=== PATIENT | female | born 1950 | race Caucasian/White ===

== ENCOUNTER → 2017-05-20 | Outpatient (CLI) | payer OTHER ==
[~2017-05-20] MED LIST: ACET325 PO; AMAN100; Advil200 M1 PO; BISA10S; BISA10S PR; CARB200 PO; CARB200ER PO; CEPH500 PO; Caffeine200 MG PO; Cipro500 MG PO; DIAZ2; DONE10 PO; FLUO20; IBUP400 PO; LEVSOD75; LOPE2C PO; Loperamide2 MG; Macrobid 100 M100 MG PO; Macrodantin50 MG PO; Milk Of Ma400 MG/5 M PO; NITR100 PO; Prozac20 MG PO; SIMV10 PO; TIZA4; TIZANIDINE HCL4 MG; TRIHYD253A; VITAMIN D32000 UNIT PO
[2017-05-21 09:23] LABS: Bilirubin, Urine Neg (Neg); Blood, Urine Neg (Neg); Glucose Qualitative, Urine Neg (Neg); Ketones, Urine Neg (Neg); Leukocyte Esterase, Urine Neg (Neg); Nitrite, Urine Pos (Neg); Protein, Urine Neg (Neg); Urobilinogen, Urine NORM (Normal)
[2017-05-21 09:45] LABS: Appearance, Urine Clear (Clear); Color, Urine Pale Yellow (P-Yellow)
[2017-05-21 09:48] LABS: Bacteria Few /hpf; Red Blood Cells, Urine Not Seen /hpf (0-2); Squamous Epithelial Cells Few /hpf (Few); White Blood Cells, Urine Not Seen /hpf (0-5)
== END ==
LOC: LAB SHORT 08:37
PROVIDERS: Internal Medicine
DX: N39.0 Urinary tract infection, site not specified (principal)
CPT/HCPCS: 81001; 87077; 87086; 87186

== ENCOUNTER → 2018-09-25 | Outpatient (CLI) | payer OTHER ==
[~2018-09-25] MED LIST changes: +DONEPEZIL HCL10 MG PO; +EUTHYROX75 MCG PO; +IBUP400; +Prozac40 MG PO; +TIZANIDINE HCL4 MG PO; +VITAMIN D34000 UNIT PO; +VIVARIN PO; +Zocor20 MG PO; +[UNRECOGNIZED DRUG - OTHER]
== END | disposition home or self-care (01) ==
LOC: LAB EV 12:42 → LAB SHORT 12:42
DX: N39.0 Urinary tract infection, site not specified (principal)
CPT/HCPCS: 87077; 87086; 87186

== ENCOUNTER 2019-01-13 12:46 | Emergency (ER) | payer OTHER ==
[~2019-01-13] VITALS: Ht 165.1 cm; Wt 66.7 kg
[~2019-01-13 12:46] MED LIST changes: -DONEPEZIL HCL10 MG PO; -EUTHYROX75 MCG PO; -IBUP400; -Prozac40 MG PO; -TIZANIDINE HCL4 MG PO; -VITAMIN D34000 UNIT PO; -VIVARIN PO; -Zocor20 MG PO; -[UNRECOGNIZED DRUG - OTHER]
[2019-01-13 13:10] LABS: Source, Urine Clean Catch
[2019-01-13 13:13] LABS: Bilirubin, Urine Neg (Neg); Blood, Urine Neg (Neg); Glucose Qualitative, Urine Neg (Neg); Ketones, Urine Neg (Neg); Leukocyte Esterase, Urine Neg (Neg); Nitrite, Urine Neg (Neg); Protein, Urine Neg (Neg); Specific Gravity, Urine 1.005 (1.003-1.022); Urobilinogen, Urine NORM (Normal)
[2019-01-13 13:14] LABS: Appearance, Urine Clear (Clear); Color, Urine Yellow (P-Yellow)
[2019-01-13] MEDS ORDERED: EUTHYROX75 MCG PO (13:24)
[2019-01-13] MEDS ORDERED: DONEPEZIL HCL10 MG PO (13:24)
[2019-01-13] MEDS ORDERED: Zocor20 MG PO (13:24)
[2019-01-13] MEDS ORDERED: Prozac40 MG PO (13:24)
[2019-01-13] MEDS ORDERED: IBUP400 (13:24)
[2019-01-13] MEDS ORDERED: TIZANIDINE HCL4 MG PO (13:25)
[2019-01-13] MEDS ORDERED: CARB200ER PO (13:25)
[2019-01-13] MEDS ORDERED: VITAMIN D34000 UNIT PO (13:26)
[2019-01-13] MEDS ORDERED: VIVARIN PO (13:26)
[2019-01-13] MEDS ORDERED: [UNRECOGNIZED DRUG - OTHER] (13:27)
[2019-01-13 15:01] LABS: Alanine Aminotransfer (ALT/SGP 24 U/L (12-78); Albumin, Blood 3.4 g/dL (3.4-5.0); Albumin/Globulin Ratio 0.9 (0.8-1.8); Alk Phos 130 U/L (50-136); Anion Gap 5 mmol/L (6-16); Aspartate Aminotrans (AST/SGOT 24 U/L (12-37); Bilirubin, Total 0.2 mg/dL (0.1-1.0); Blood Urea Nitrogen 9 mg/dL (8-24); Bun/Creatinine Ratio 11.3 (12.0-20.0); CO2, Blood 27 mmol/L (21-32); Calcium, Blood 8.8 mg/dL (8.5-10.1); Chloride, Blood 100 mmol/L (98-108); Globulin, Blood 3.8 g/dL (2.2-4.0); Glomerular Filtration Rate >60 (60-); Glucose, Blood 87 mg/dL (70-99); Potassium, Blood 4.6 mmol/L (3.5-5.5); Sodium, Blood 132 mmol/L (136-145); Total Protein, Blood 7.2 g/dL (6.4-8.2)
[2019-01-13 15:05] LABS: BASOPHILS ABSOLUTE AUTO 0.05 K/mm3 (0.00-0.23); BASOPHILS PERCENT AUTO 1 % (0-2); EOSINOPHILS PERCENT AUTO 0 % (0-6); Hematocrit 40.3 % (33.0-51.0); Hemoglobin 13.3 g/dL (11.5-16.0); IMMATURE GRAN ABSOLUTE AUTO 0.01 K/mm3 (0.00-0.10); IMMATURE GRAN PERCENT AUTO 0 % (0-1); LYMPHOCYTES ABSOLUTE AUTO 1.92 K/mm3 (0.84-5.20); LYMPHOCYTES PERCENT AUTO 32 % (21-46); MONOCYTES ABSOLUTE AUTO 0.48 K/mm3 (0.16-1.47); MONOCYTES PERCENT AUTO 8 % (4-13); Mean Corpuscular Volume 94 fL (80-100); Mean Platelet Volume 9.7 fL (9.1-12.4); NEUTROPHILS ABSOLUTE AUTO 3.63 K/mm3 (1.96-9.15); NEUTROPHILS PERCENT AUTO 60 % (41-73); Platelet Count 224 K/mm3 (150-400); RDW Coefficient Variation 12.9 % (11.7-14.2); RDW Standard Deviation 44.2 fL (35.1-46.3); Red Blood Cell Count 4.29 M/mm3 (3.80-5.20); White Blood Cell Count 6.09 K/mm3 (4.00-11.30)
== END 2019-01-13 15:28 | disposition home or self-care (01) ==
LOC: ER 12:46
PROVIDERS: Physician Assistant
DX: E87.1 Hypo-osmolality and hyponatremia (principal)
CPT/HCPCS: 36415; 80053; 81003; 85025; 93005; 93010; 99285-25

== ENCOUNTER → 2019-02-14 | Outpatient (CLI) | payer OTHER ==
[~2019-02-14] MED LIST changes: +AMLO5 PO; +ASPI81CH PO; +Anti-Diarrheal2 MG; +Anti-Diarrheal2 MG PO; +BUDESONIDE ER9 MG PO; +CHLORHEXIDINE; +CLOB.05TO; +DIPH12.5EL MT; +DONEPEZIL HCL10 MG PO; +DOXY100 PO; +EUTHYROX75 MCG PO; +Eq Liquid Anta769 ML PO; +Florastor250 MG PO; +Halobetasol Pro15 GM TOP; +IBUP400; +LEVSOD75 PO; +MILK OF MA400 MG/5 M PO; +MYCO250 PO; +Minocycline HC100 M1 PO; +NIACIN500 MG PO; +NITR100CA PO; +NYST100000 MT; +NYST100000 SS; +Norco 5-325 Ta1 EACH PO; +ONDA4ODT MM; +ONDA4ODT PO; +PANT40 PO; +PRED20 PO; +Prednisone20 MG PO; +Prozac40 MG PO; +SUCR1 PO; +Secura Protecti50 GM TOP; +THERA-D2000 UNIT PO; +TIZA4 PO; +TIZANIDINE HCL4 MG PO; +TRIANEX430 GM; +Tegretol Xr400 MG PO; +VITAMIN D34000 UNIT PO; +VIVARIN PO; +Xylocaine5 M1 MT; +Zocor20 MG PO; +[UNRECOGNIZED DRUG - OTHER]; +[UNRECOGNIZED DRUG - OTHER] TOP
== END ==
LOC: LAB SHORT 11:50 → LAB 11:50
DX: R21 Rash and other nonspecific skin eruption (principal)
CPT/HCPCS: 87070; 87205

== ENCOUNTER 2019-03-12 22:19 | Emergency (ER) | payer OTHER ==
[~2019-03-12] VITALS: Ht 162.6 cm; Wt 70.3 kg
[~2019-03-12 22:19] MED LIST changes: -AMLO5 PO; -ASPI81CH PO; -Anti-Diarrheal2 MG PO; -BUDESONIDE ER9 MG PO; -DIPH12.5EL MT; -DOXY100 PO; -Eq Liquid Anta769 ML PO; -Florastor250 MG PO; -Halobetasol Pro15 GM TOP; -LEVSOD75 PO; -MILK OF MA400 MG/5 M PO; -MYCO250 PO; -Minocycline HC100 M1 PO; -NIACIN500 MG PO; -NITR100CA PO; -NYST100000 MT; -NYST100000 SS; -Norco 5-325 Ta1 EACH PO; -ONDA4ODT PO; -PANT40 PO; -PRED20 PO; -Prednisone20 MG PO; -SUCR1 PO; -Secura Protecti50 GM TOP; -THERA-D2000 UNIT PO; -TIZA4 PO; -Tegretol Xr400 MG PO; -Xylocaine5 M1 MT; -[UNRECOGNIZED DRUG - OTHER] TOP
[2019-03-12] MEDS ORDERED: DOXY100 PO (23:23)
[2019-03-12] MEDS ORDERED: NITR100CA PO (23:26)
[2019-03-12] MEDS ORDERED: Halobetasol Pro15 GM TOP (23:29)
[2019-03-12] MEDS ORDERED: [UNRECOGNIZED DRUG - OTHER] TOP (23:30)
[2019-03-12] MEDS ORDERED: Anti-Diarrheal2 MG PO (23:34)
[2019-03-12 23:49] LABS: BASOPHILS ABSOLUTE AUTO 0.01 K/mm3 (0.00-0.23); BASOPHILS PERCENT AUTO 0 % (0-2); EOSINOPHILS PERCENT AUTO 0 % (0-6); Hematocrit 32.5 % (33.0-51.0); Hemoglobin 10.3 g/dL (11.5-16.0); IMMATURE GRAN ABSOLUTE AUTO 0.03 K/mm3 (0.00-0.10); IMMATURE GRAN PERCENT AUTO 0 % (0-1); LYMPHOCYTES ABSOLUTE AUTO 1.69 K/mm3 (0.84-5.20); LYMPHOCYTES PERCENT AUTO 25 % (21-46); MONOCYTES ABSOLUTE AUTO 0.62 K/mm3 (0.16-1.47); MONOCYTES PERCENT AUTO 9 % (4-13); Mean Corpuscular HGB 30.6 pg (26.0-34.0); Mean Corpuscular HGB Conc 31.7 g/dL (31.5-36.5); Mean Corpuscular Volume 96 fL (80-100); Mean Platelet Volume 9.4 fL (9.1-12.4); NEUTROPHILS ABSOLUTE AUTO 4.53 K/mm3 (1.96-9.15); NEUTROPHILS PERCENT AUTO 66 % (41-73); Platelet Count 263 K/mm3 (150-400); RDW Coefficient Variation 13.7 % (11.7-14.2); RDW Standard Deviation 48.9 fL (35.1-46.3); Red Blood Cell Count 3.37 M/mm3 (3.80-5.20); White Blood Cell Count 6.88 K/mm3 (4.00-11.30)
[2019-03-13 00:06] LABS: Alanine Aminotransfer (ALT/SGP 13 U/L (12-78); Albumin, Blood 2.1 g/dL (3.4-5.0); Albumin/Globulin Ratio 0.8 (0.8-1.8); Alk Phos 82 U/L (50-136); Anion Gap 5 mmol/L (6-16); Aspartate Aminotrans (AST/SGOT 13 U/L (12-37); Bilirubin, Total 0.2 mg/dL (0.1-1.0); Blood Urea Nitrogen 21 mg/dL (8-24); Bun/Creatinine Ratio 27.8 (12.0-20.0); CO2, Blood 27 mmol/L (21-32); Calcium, Blood 7.7 mg/dL (8.5-10.1); Chloride, Blood 109 mmol/L (98-108); Creatinine, Blood 0.76 mg/dL (0.40-1.00); Globulin, Blood 2.7 g/dL (2.2-4.0); Glomerular Filtration Rate >60 (60-); Glucose, Blood 98 mg/dL (70-99); Magnesium, Blood 1.8 mg/dL (1.6-2.4); Potassium, Blood 4.6 mmol/L (3.5-5.5); Sodium, Blood 141 mmol/L (136-145); Total Protein, Blood 4.8 g/dL (6.4-8.2)
[2019-03-13] MEDS ORDERED: Prednisone20 MG PO (00:40)
[2019-03-13] MEDS ORDERED: [UNRECOGNIZED DRUG - OTHER] TOP (19:23)
[2019-03-13] MEDS ORDERED: NITR100CA PO (23:24)
== END 2019-03-13 01:35 | disposition home or self-care (01) ==
LOC: ER 22:19
PROVIDERS: Emergency Medicine
DX: L12.0 Bullous pemphigoid (principal); E03.9 Hypothyroidism, unspecified; E78.5 Hyperlipidemia, unspecified; G30.9 Alzheimer's disease, unspecified; F02.80 Dementia in other diseases classified elsewhere, unspecified severity, without behavioral disturbance, psychotic disturbance, mood disturbance, and anxiety; F17.210 Nicotine dependence, cigarettes, uncomplicated; Z79.899 Other long term (current) drug therapy
CPT/HCPCS: 36415; 80053; 83605; 83735; 84145; 85025; 87040; 99283; J7512

== ENCOUNTER 2019-03-13 15:57 | Observation (INO) | payer OTHER ==
[~2019-03-13] VITALS: Ht 162.6 cm; Wt 74.7 kg
[~2019-03-13 15:57] MED LIST changes: +Anti-Diarrheal2 MG PO; +DOXY100 PO; +Halobetasol Pro15 GM TOP; +NITR100CA PO; +Prednisone20 MG PO; +[UNRECOGNIZED DRUG - OTHER] TOP
[2019-03-13 16:45] LABS: BASOPHILS ABSOLUTE AUTO 0.03 K/mm3 (0.00-0.23); BASOPHILS PERCENT AUTO 0 % (0-2); EOSINOPHILS PERCENT AUTO 0 % (0-6); Hemoglobin 10.3 g/dL (11.5-16.0); IMMATURE GRAN ABSOLUTE AUTO 0.03 K/mm3 (0.00-0.10); IMMATURE GRAN PERCENT AUTO 0 % (0-1); LYMPHOCYTES ABSOLUTE AUTO 1.61 K/mm3 (0.84-5.20); LYMPHOCYTES PERCENT AUTO 18 % (21-46); MONOCYTES ABSOLUTE AUTO 0.69 K/mm3 (0.16-1.47); MONOCYTES PERCENT AUTO 8 % (4-13); Mean Corpuscular HGB 30.7 pg (26.0-34.0); Mean Corpuscular HGB Conc 31.2 g/dL (31.5-36.5); Mean Corpuscular Volume 98 fL (80-100); Mean Platelet Volume 9.4 fL (9.1-12.4); NEUTROPHILS ABSOLUTE AUTO 6.41 K/mm3 (1.96-9.15); NEUTROPHILS PERCENT AUTO 73 % (41-73); Platelet Count 234 K/mm3 (150-400); RDW Coefficient Variation 13.8 % (11.7-14.2); RDW Standard Deviation 50.3 fL (35.1-46.3); Red Blood Cell Count 3.36 M/mm3 (3.80-5.20); White Blood Cell Count 8.77 K/mm3 (4.00-11.30)
[2019-03-13 17:08] LABS: Alanine Aminotransfer (ALT/SGP 12 U/L (12-78); Albumin, Blood 2.2 g/dL (3.4-5.0); Albumin/Globulin Ratio 0.7 (0.8-1.8); Alk Phos 88 U/L (50-136); Anion Gap 5 mmol/L (6-16); Aspartate Aminotrans (AST/SGOT 13 U/L (12-37); Bilirubin, Total 0.2 mg/dL (0.1-1.0); Blood Urea Nitrogen 24 mg/dL (8-24); Bun/Creatinine Ratio 26.5 (12.0-20.0); CO2, Blood 24 mmol/L (21-32); Calcium, Blood 7.8 mg/dL (8.5-10.1); Chloride, Blood 108 mmol/L (98-108); Creatinine, Blood 0.91 mg/dL (0.40-1.00); Globulin, Blood 3.1 g/dL (2.2-4.0); Glomerular Filtration Rate >60 (60-); Glucose, Blood 109 mg/dL (70-99); Potassium, Blood 4.5 mmol/L (3.5-5.5); Sodium, Blood 137 mmol/L (136-145); Total Protein, Blood 5.3 g/dL (6.4-8.2)
[2019-03-13 18:02] LABS: Carbamazepine 11.1 ug/mL (4.0-12.0)
[2019-03-13] MEDS ORDERED: [UNRECOGNIZED DRUG - OTHER] TOP (19:23)
--- NOTE | 2019-03-13 21:37 | NUR ---
REPORT RECIEVED FROM PRASHANTH (BAD CLOTH CHECKER) AT 2114 AND AWAITING PT T/F TO ROOM 349. TECH WAS ATTEMPTING NEW IV PLACEMENT FOR RX'D CTA PER REPORT.
[2019-03-13] MEDS ORDERED: NITR100CA PO (23:24)
--- NOTE | 2019-03-14 05:43 | NUR ---
T/F AND SUMMARY: PT T/F'D TO ROOM 349 AT 2155. SHE'S A/OX3 AND APPEARS TO BE AN OK HISTORIAN BUT HAS DEMENTIA W/SOME FORGETFULLNESS AT TIMES. PT AWARE OF LIMITATIONS AND USED CALL LIGHT CORRECTLY PRN BUT ALARM ON FOR SAFETY AND FALL RISK. SHE IS ABLE TO SPECIFY NEEDS AND ANSWERS MOST Q'S APPROPRIATELY BUT SOMETIMES USES WORDS INCORRECTLY. FAMILY CONFIRMED THAT HER OCCASIONAL STUTTER AND FINE TREMOR ARE PRESENT AT BASELINE R/T MS. SHE ARRIVED W/O ANY OBSERVED TIA DEFICITS AND NEUROS CHECKS REMAINED STABLE T/O NOCTE. BUE, OUTREACH EDUCATOR AND BLE STRENGTH EQUAL. LEGS ARE WEAK AND SLIGHTLY CONTRACTED FROM MS. SHE'S W/C BOUND AND NONAMBULATORY AT BASELINE BUT CAN 2P PIVOT TO BSC. BSC AND BEDPAN WERE USED FOR VOIDS THIS SHIFT. SHE WAS ALSO NOTED TO HAVE SOME URGE INCONTINENCE W/ATTENDS CHANGED PRN. TURN SCHEDULE MAINTAINED FOR SBD PREVENTION. PT HAS NEW DX OF BULLOUS PEMPHIGOID APPROX 4 WEEKS AGO W/DIFFUSE RED RASH AND BLISTERS, BOTH INTACT AND BROKEN, COVERING HER ENTIRE BODY. PHOTOS WERE TAKEN AND ROSELYNRIN RECIEVED PRN FOR TOLERABLE CONTROL OF ASSOCIATED PAIN. LOVENOX PROVIDED BUT SCD'S HELD D/T BLISTERS. PT'S SON-IN-LAW CALLED FOR UPDATE. HE AND HIS ARE IN [place] AND HAVE POA. PT LIVES AT [facility]. NO ACUTE CHANGES, VSS/AFEBRILE. WCTM AND REPORT TO DAY LUIS.
--- NOTE | 2019-03-14 17:34 | NUR ---
PT IS A/OX3, PLEASANT AND COOPERATIVE, THE PT IS UP WITH 2 PERSON ASSIST, THE PT WAS ABLE TO ANSWER QUESTIONS APPROPRIATLY, CREAM WAS APPLIED TO THE PTS WOUNDS COVERING HER WHOLE BODY, THE PT WAS MEDICATED WITH ADVIL X 1 FOR PAIN AFTER THE LOTION WAS APPLIED, THE PT WORKED WITH THE PHYSICAL AND OPCCUPATIONAL THERAPIST TODAY, THE PT WAS UP INTO THE CHAIR X2, FAMILY AT THE BEDSIDE T/O THE DAY, CALL LIGHT IN REACH, WILL CONTINUE TO MONITOR AND ASSESS FOR CHANGES
--- NOTE | 2019-03-15 05:13 | NUR ---
SUMMARY: PT A/OX3, COOPERATIVE W/CARE AND SPECIFIES NEEDS. SHE WASN'T OOB THIS SHIFT AND ATTEMPTED TO USE BEDPAN BUT HAD URGE INCONTINENT MOSTLY W/ATTENDS CHANGED PRN. CREAMS APPLIED TO WOUNDS/BLISTERS THAT COVER ENTIRE BODY. SHE WAS MEDICATED W/MOTRIN PRN X2 DOSES FOR TOLERABLE CONTROL OF WALLACE AND BODY PAIN. TURN SCHEDULE WAS MAINTAINED AND HEELS FLOATED FOR SBD PREVENTION. PT ANSWERS Q'S APPROPROPRIATELY AND OCCASIONALLY HAS STUTTERED SPEECH D/T MS. NO NEURO DEFICITS OBSERVED. VSS/AFEBRILE. POSSIBLE D/C TODAY/TOMORROW. PT LIVES AT [facility] [employer]. NO ACUTE CHANGES. WCTM AND REPORT TO DAY RN.
--- NOTE | 2019-03-15 15:15 | NUR ---
SHIFT SUMMARY PT AWAKE THIS AM, PLEASANT AND CO-OP. ADMITTED FOR POSSIBLE TIA; RESOLVED PRIOR TO ADMIT PER REPORT. PT WITH BODY WIDE BLISTERS AT DIFFERENT STAGES; BULLOUS PEMPHIGOID. STEROID CREAM APPLIED PER EMAR. PT ALSO TAKING PREDNISONE PER EMAR. PT REPORTS PAIN FROM BLISTERS TOLERABLE. MORTRIN GIVEN PER EMAR. PT EDEMATOUS, ESPECIALLY TO BLE'S. HX OF ALZ AND DEMENTIA. LIVES AT [facility] [facility] CASTLE IN TO SEE PT THIS AM. D/C ORDERS PLACED. NO CHANGES TO MEDICATIONS. PT TO F/U WITH PCP IN 1 WEEK. PT ACKNOWLEDGED D/C ORDERS. COPY SENT TO [facility] WITH TRANSPORT PERSON. ATTEMPTED TO GIVE REPORT TO [facility] NURSING, BUT THEY DECLINED NEEDING REPORT. SPOKE WITH SEAT 4a; NO CHANGES TO MEDS MADE. PT UP TO CHAIR FOR BREAKFAST UNTIL REQUESTING TO GO BACK TO BED. LATER CALLED FOR BED MIXON, BUT HAD ALREADY VOIDED IN ATTENDS. 2P ASSIST TO CHAIR WITH GAIT BELT. PT VERY WEAK; DOES ATTEMPT TO HELP, BUT WEAK. PT'S SISTER IN TO VISIT IN AM AND UPDATE GIVEN AFTER D/C. DAUGHTER CALLED THIS AM WELL. UPDATE GIVEN.
== END 2019-03-15 13:32 | disposition home or self-care (01) ==
LOC: ER 15:57 → MEDS 15:58 → ER 19:46 → MEDS 21:56 → ENPENDDIS 03-15 12:51 → MEDS 03-15 13:32
PROVIDERS: Emergency Medicine; ADMIT Hospitalist
DX: G45.9 Transient cerebral ischemic attack, unspecified (principal); G40.909 Epilepsy, unspecified, not intractable, without status epilepticus; G35 Multiple sclerosis; G30.9 Alzheimer's disease, unspecified; F02.80 Dementia in other diseases classified elsewhere, unspecified severity, without behavioral disturbance, psychotic disturbance, mood disturbance, and anxiety; L10.89 Other pemphigus; E03.9 Hypothyroidism, unspecified; F17.210 Nicotine dependence, cigarettes, uncomplicated; E86.0 Dehydration; D64.9 Anemia, unspecified; Z79.82 Long term (current) use of aspirin; Z79.899 Other long term (current) drug therapy
CPT/HCPCS: 70450; 70496; 70498; 80053; 80156; 85025; 93005; 93010; 93306; 96372; 97162; 97166; 97530; 99285-25; A9270-GY; G0378; J1650; J7030; J7512; Q9967

== ENCOUNTER 2019-03-19 10:58 | Emergency (ER) | payer OTHER ==
[~2019-03-19] VITALS: Ht 167.6 cm; Wt 95.2 kg
[2019-03-19 12:35] LABS: BASOPHILS ABSOLUTE AUTO 0.06 K/mm3 (0.00-0.23); BASOPHILS PERCENT AUTO 0 % (0-2); EOSINOPHILS PERCENT AUTO 0 % (0-6); Hematocrit 38.2 % (33.0-51.0); Hemoglobin 12.1 g/dL (11.5-16.0); IMMATURE GRAN ABSOLUTE AUTO 0.07 K/mm3 (0.00-0.10); IMMATURE GRAN PERCENT AUTO 1 % (0-1); LYMPHOCYTES ABSOLUTE AUTO 0.63 K/mm3 (0.84-5.20); LYMPHOCYTES PERCENT AUTO 4 % (21-46); MONOCYTES ABSOLUTE AUTO 1.01 K/mm3 (0.16-1.47); MONOCYTES PERCENT AUTO 7 % (4-13); Mean Corpuscular HGB 30.6 pg (26.0-34.0); Mean Corpuscular HGB Conc 31.7 g/dL (31.5-36.5); Mean Corpuscular Volume 97 fL (80-100); Mean Platelet Volume 9.1 fL (9.1-12.4); NEUTROPHILS ABSOLUTE AUTO 12.95 K/mm3 (1.96-9.15); NEUTROPHILS PERCENT AUTO 88 % (41-73); Platelet Count 413 K/mm3 (150-400); RDW Coefficient Variation 14.3 % (11.7-14.2); RDW Standard Deviation 50.8 fL (35.1-46.3); Red Blood Cell Count 3.95 M/mm3 (3.80-5.20); White Blood Cell Count 14.72 K/mm3 (4.00-11.30)
[2019-03-19 12:52] LABS: Alanine Aminotransfer (ALT/SGP 20 U/L (12-78); Albumin, Blood 2.7 g/dL (3.4-5.0); Albumin/Globulin Ratio 0.7 (0.8-1.8); Alk Phos 95 U/L (50-136); Anion Gap 6 mmol/L (6-16); Aspartate Aminotrans (AST/SGOT 18 U/L (12-37); Bilirubin, Total 0.2 mg/dL (0.1-1.0); Blood Urea Nitrogen 16 mg/dL (8-24); Bun/Creatinine Ratio 21.4 (12.0-20.0); CO2, Blood 26 mmol/L (21-32); Calcium, Blood 8.2 mg/dL (8.5-10.1); Chloride, Blood 108 mmol/L (98-108); Creatinine, Blood 0.75 mg/dL (0.40-1.00); Globulin, Blood 3.8 g/dL (2.2-4.0); Glomerular Filtration Rate >60 (60-); Glucose, Blood 147 mg/dL (70-99); Potassium, Blood 4.3 mmol/L (3.5-5.5); Sodium, Blood 140 mmol/L (136-145); Total Protein, Blood 6.5 g/dL (6.4-8.2)
== END 2019-03-19 16:23 | disposition home or self-care (01) ==
LOC: ER 10:58
PROVIDERS: Emergency Medicine
DX: J02.9 Acute pharyngitis, unspecified (principal); E86.0 Dehydration; L12.9 Pemphigoid, unspecified; I10 Essential (primary) hypertension; G30.9 Alzheimer's disease, unspecified; F02.80 Dementia in other diseases classified elsewhere, unspecified severity, without behavioral disturbance, psychotic disturbance, mood disturbance, and anxiety; F17.210 Nicotine dependence, cigarettes, uncomplicated; G35 Multiple sclerosis
CPT/HCPCS: 36415; 80053; 85025; 96361; 96374; 99283-25; J2930; J7030

== ENCOUNTER 2019-03-24 13:36 | Emergency (ER) | payer OTHER ==
[~2019-03-24] VITALS: Ht 162.6 cm; Wt 86.2 kg
[2019-03-24] MEDS ORDERED: NYST100000 SS (16:25)
== END 2019-03-24 18:41 | disposition home or self-care (01) ==
LOC: ER 13:36
DX: B37.0 Candidal stomatitis (principal); G35 Multiple sclerosis; L10.9 Pemphigus, unspecified; G30.9 Alzheimer's disease, unspecified; F02.80 Dementia in other diseases classified elsewhere, unspecified severity, without behavioral disturbance, psychotic disturbance, mood disturbance, and anxiety; E03.9 Hypothyroidism, unspecified; E78.5 Hyperlipidemia, unspecified; F17.210 Nicotine dependence, cigarettes, uncomplicated; Z79.52 Long term (current) use of systemic steroids; Z79.899 Other long term (current) drug therapy
CPT/HCPCS: 96365; 96366; 99283-25; J2930

== ENCOUNTER 2019-03-25 11:12 | Observation (INO) | payer OTHER ==
[~2019-03-25] VITALS: Ht 167.6 cm; Wt 66.9 kg
[~2019-03-25 11:12] MED LIST changes: +NYST100000 SS
[2019-03-25 14:11] LABS: BASOPHILS ABSOLUTE AUTO 0.05 K/mm3 (0.00-0.23); BASOPHILS PERCENT AUTO 0 % (0-2); EOSINOPHILS PERCENT AUTO 0 % (0-6); Hematocrit 37.3 % (33.0-51.0); Hemoglobin 11.6 g/dL (11.5-16.0); IMMATURE GRAN PERCENT AUTO 1 % (0-1); LYMPHOCYTES ABSOLUTE AUTO 2.31 K/mm3 (0.84-5.20); LYMPHOCYTES PERCENT AUTO 18 % (21-46); MONOCYTES ABSOLUTE AUTO 1.29 K/mm3 (0.16-1.47); MONOCYTES PERCENT AUTO 10 % (4-13); Mean Corpuscular HGB Conc 31.1 g/dL (31.5-36.5); Mean Corpuscular Volume 96 fL (80-100); Mean Platelet Volume 9.2 fL (9.1-12.4); NEUTROPHILS ABSOLUTE AUTO 9.46 K/mm3 (1.96-9.15); NEUTROPHILS PERCENT AUTO 72 % (41-73); Platelet Count 390 K/mm3 (150-400); RDW Coefficient Variation 13.7 % (11.7-14.2); RDW Standard Deviation 48.7 fL (35.1-46.3); Red Blood Cell Count 3.87 M/mm3 (3.80-5.20); White Blood Cell Count 13.21 K/mm3 (4.00-11.30)
[2019-03-25 14:32] LABS: Alanine Aminotransfer (ALT/SGP 62 U/L (12-78); Albumin, Blood 2.5 g/dL (3.4-5.0); Albumin/Globulin Ratio 0.6 (0.8-1.8); Alk Phos 71 U/L (50-136); Anion Gap 5 mmol/L (6-16); Aspartate Aminotrans (AST/SGOT 44 U/L (12-37); Bilirubin, Total 0.2 mg/dL (0.1-1.0); Blood Urea Nitrogen 17 mg/dL (8-24); Bun/Creatinine Ratio 24.8 (12.0-20.0); CO2, Blood 29 mmol/L (21-32); Calcium, Blood 8.4 mg/dL (8.5-10.1); Chloride, Blood 111 mmol/L (98-108); Creatinine, Blood 0.69 mg/dL (0.40-1.00); Globulin, Blood 4.1 g/dL (2.2-4.0); Glomerular Filtration Rate >60 (60-); Glucose, Blood 89 mg/dL (70-99); Potassium, Blood 3.8 mmol/L (3.5-5.5); Sodium, Blood 145 mmol/L (136-145); Total Protein, Blood 6.6 g/dL (6.4-8.2)
[2019-03-25 14:45] LABS: Calcium, Ionized (POC) 1.06 mmol/L (1.10-1.46); Chloride (POC) 107 mmol/L (98-108); Creatinine (POC) 0.7 mg/dL (0.6-1.0); Glucose (ISTAT POC) 91 mg/dL (70-99); Hemoglobin (POC) 11.2 g/dL (12.0-16.0); Potassium (POC) 3.8 mmol/L (3.5-5.5); Sodium (POC) 141 mmol/L (135-148); Total CO2 (POC) 30 mmol/L (21-32)
--- NOTE | 2019-03-25 17:01 | NUR ---
1458 PT ADMITTED TO [facility] FLOOR VIA GURNEY, SLIDE TRANSFERED TO BED WITHOUT ISSUE. PT INCONTINENT OF URINE, INCONTINENCE CARE PERFORMED, HOSPITAL GOWN PUT ON. PT WITH MULTIPLE BLISTERS BOTH CLOSED AND OPEN SCATTERED THROUGHOUT ENTIRE SKIN, PICTURES TAKEN. PT WITH FULL CODE ORDERS, SPOKE WITH MARIAELENA RONDON WHO CONFIRMED MOST RECENT POLST THAT IS ON FILE SHOWS DNR, DR. TORRES NOTIFIED AND RECIEVED ORDERS FOR DNR, COPY OF POLST ON FRONT OF CHART. UNABLE TO FIND DERMOTALOGY CONSULT FOR WEEKEND, DR. TORRES NOTIFIED.
--- NOTE | 2019-03-25 18:36 | NUR ---
SON AT BEDSIDED, PLAN OF CARE EXPLAINED, PT AND SON AGREE WITH PLAN OF CARE.
--- NOTE | 2019-03-26 04:12 | NUR ---
SHIFT SUMMARY PATIENT UNABLE TO GET A GOOD NIGHT SLEEP DUE TO BEING COLD AND HAVING FREQUENT URINATION. FURNACE PROCESS SUPERVISOR AND I BOTH OBTAINED WARM BLANKETS NEEDED. IV IN LEFT WRIST PATENT AND INFUSING, DRESSING CHANGED ON IV. BED IN LOWEST POSITION WITH WHEELS LOCKED AND ALARM ON. CALL LIGHT WITHIN REACH. REPORT GIVEN TO ONCOMING RN.
[2019-03-26 05:43] LABS: Alanine Aminotransfer (ALT/SGP 42 U/L (12-78); Albumin, Blood 2.2 g/dL (3.4-5.0); Albumin/Globulin Ratio 0.6 (0.8-1.8); Alk Phos 60 U/L (50-136); Anion Gap 6 mmol/L (6-16); Aspartate Aminotrans (AST/SGOT 17 U/L (12-37); Bilirubin, Total 0.2 mg/dL (0.1-1.0); Blood Urea Nitrogen 17 mg/dL (8-24); Bun/Creatinine Ratio 30.5 (12.0-20.0); CO2, Blood 28 mmol/L (21-32); Calcium, Blood 7.9 mg/dL (8.5-10.1); Chloride, Blood 108 mmol/L (98-108); Creatinine, Blood 0.56 mg/dL (0.40-1.00); Globulin, Blood 3.5 g/dL (2.2-4.0); Glomerular Filtration Rate >60 (60-); Glucose, Blood 115 mg/dL (70-99); Potassium, Blood 3.7 mmol/L (3.5-5.5); Sodium, Blood 142 mmol/L (136-145); Total Protein, Blood 5.7 g/dL (6.4-8.2)
[2019-03-26 06:07] LABS: Hematocrit 38.6 % (33.0-51.0); Hemoglobin 11.9 g/dL (11.5-16.0); Mean Corpuscular HGB 30.7 pg (26.0-34.0); Mean Corpuscular HGB Conc 30.8 g/dL (31.5-36.5); Mean Corpuscular Volume 100 fL (80-100); Mean Platelet Volume 9.6 fL (9.1-12.4); Platelet Count 318 K/mm3 (150-400); RDW Coefficient Variation 13.7 % (11.7-14.2); RDW Standard Deviation 49.6 fL (35.1-46.3); Red Blood Cell Count 3.87 M/mm3 (3.80-5.20)
--- NOTE | 2019-03-26 10:03 | NUR ---
PT TO DAY SURGERY FOR EGD, NPO SINCE ADMISSION.
--- NOTE | 2019-03-26 10:41 | NUR ---
03/26/19 1041 Sangeetha Varela History, Chart, Medications and Allergies reviewed before start of procedure.PATIENT DETERMINED TO BE ASA APPROPRIATE FOR PROPOFOL SEDATION PRIOR TO START OF PROCEDURE BY .MONITOR INTACT WITH CONTINUOUS PULSE OXIMETRY AND INTERMITTENT BP.3-LEAD EKG REVIEWED WITH PHYSICIAN PRIOR TO START OF PROCEDURE.O2 VIA N/C INTACT THROUGHOUT SEDATION/PROCEDURE.
--- NOTE | 2019-03-26 13:22 | NUR ---
PT NAUSEUS, IV ZOFRAN GIVEN, AWAITING TO GIVE CARAFATE AND SLURRY FORMULATION
--- NOTE | 2019-03-26 14:44 | NUR ---
SPOKE WITH DR. CLARK VIA PHONE, RECIEVED DIET ORDER FOR DINNER MECH SOFT. PT REFUSED STRAIGHT CATH FOR U/A, DR. TORRES NOTIFIED, RECIEVED ORDER TO D/C U/A.
--- NOTE | 2019-03-26 18:42 | NUR ---
SHIFT SUMMARY. EGD COMPLETED THIS LATE AM. PT TOLERATED MECH SOFT DIET FOR DINNER WITHOUT COMPLAINT. FAMILY UPDATED THIS EVENING.
--- NOTE | 2019-03-27 05:44 | NUR ---
SHIFT SUMMARY LYING IN SEMI FOWLERS WITH EYES CLOSED. HAS WOKEN UP AND CALLED OUT SEVERAL TIMES THROUGHOUT SHIFT. AT ONE TIME SHE ASKED FOR N/V MEDS AND "SOMETHING FOR PAIN". WHEN BROUGHT TO BEDSIDE SHE ACCEPTED THE ZOFRAN FOR N/V BUT REFUSED THE RECTAL TYLENO, STATING THAT SHE HAD BEEN SUFFEREING ALL HER LIFE WITH MS AND WAS USED TO PAIN. HAS BEEN CONFUSED OFF AND ON THROUGHOUT THE SHIFT, APPREARS TO EASILY REORIENT, BUT NURSING IS UNSURE. SAFETY MEAURES IN PLACE. WILL GIVE HAND OFF TO ONCOMING SHIFT USING SBAR.
--- NOTE | 2019-03-27 18:10 | NUR ---
SUMMARY PT IS A/O X1-2, FORGETFUL w HX ALZ/DEM, RESIDENT OF [facility]. DX BOLLUS PEMPHAGOID, SHE HAS SCABS & BLISTERS T/O BODY IN VARIOUS STAGES OF HEALING. COMPLETE BEDBATH GIVEN THIS AM, 2 DIFFERENT OINTS FROM HOME ORDERED/APPLIED. COMPLETE LINEN CHANGE. DR BURT (DERMATOLOGY CONSULT) IN TO SEE HER @ NOON, HE SPOKE W DR TORRES AFTER VISIT. DR TORRES ADJUST MEDICATION ORDERS THIS AFTERNOON, STOP CLINIMIX. MULT FAMILY IN TO VISIT TODAY/SUPPORTIVE. VSS.
[2019-03-28 04:49] LABS: BASOPHILS ABSOLUTE AUTO 0.02 K/mm3 (0.00-0.23); BASOPHILS PERCENT AUTO 0 % (0-2); EOSINOPHILS PERCENT AUTO 0 % (0-6); Hematocrit 36.1 % (33.0-51.0); Hemoglobin 11.4 g/dL (11.5-16.0); IMMATURE GRAN ABSOLUTE AUTO 0.08 K/mm3 (0.00-0.10); IMMATURE GRAN PERCENT AUTO 1 % (0-1); LYMPHOCYTES ABSOLUTE AUTO 2.14 K/mm3 (0.84-5.20); LYMPHOCYTES PERCENT AUTO 23 % (21-46); MONOCYTES ABSOLUTE AUTO 0.63 K/mm3 (0.16-1.47); MONOCYTES PERCENT AUTO 7 % (4-13); Mean Corpuscular HGB 30.1 pg (26.0-34.0); Mean Corpuscular HGB Conc 31.6 g/dL (31.5-36.5); Mean Platelet Volume 9.4 fL (9.1-12.4); NEUTROPHILS ABSOLUTE AUTO 6.34 K/mm3 (1.96-9.15); NEUTROPHILS PERCENT AUTO 69 % (41-73); Platelet Count 312 K/mm3 (150-400); RDW Coefficient Variation 13.7 % (11.7-14.2); RDW Standard Deviation 47.6 fL (35.1-46.3); Red Blood Cell Count 3.79 M/mm3 (3.80-5.20); White Blood Cell Count 9.21 K/mm3 (4.00-11.30)
--- NOTE | 2019-03-28 04:49 | NUR ---
SHIFT SUMMARY ADMITTED FOR BULLOUS PEMPHIGOID. DNR CODE. DR GRACE CONSULTED FOR DERMATOLOGY.. BLISTERS COVER EXTREMETIES. EGD PERFORMED. [facility] SOFT DIET W/NO HOT LIQUIDS RECOMMENDED. PT ABLE TO SWALLOW HER PILLS AND EAT ALL OF HER DINNER TODAY. RA. 2 ASSIST TO BSC, HX:MS, ALZHEIMERS/DEMENTIA. LIVES AT [facility]. MONITORING WBC LABS.
[2019-03-28 04:53] LABS: Mean Corpuscular Volume 95 fL (80-100)
[2019-03-28 05:10] LABS: Albumin, Blood 2.1 g/dL (3.4-5.0); Anion Gap 5 mmol/L (6-16); Blood Urea Nitrogen 16 mg/dL (8-24); CO2, Blood 28 mmol/L (21-32); Calcium, Blood 7.7 mg/dL (8.5-10.1); Chloride, Blood 109 mmol/L (98-108); Creatinine, Blood 0.64 mg/dL (0.40-1.00); Glomerular Filtration Rate >60 (60-); Glucose, Blood 82 mg/dL (70-99); Phosphorus, Blood 2.5 mg/dL (2.5-4.9); Sodium, Blood 142 mmol/L (136-145)
[2019-03-28] MEDS ORDERED: BUDESONIDE ER9 MG PO (12:06)
--- NOTE | 2019-03-28 12:46 | NUR ---
discharge DR TORRES IN TO SEE PT, STATE OK FOR TRANSFER HOME TODAY TO [facility]. PT DAUGHTER/POA NOTIFIED. [facility] NOTIFIED, ORDERS FAXED TO THEM. PT HAD PT/OT TODAY. SHE WAS UP IN CHAIR, 1 ASSIST STAND/PIVOT TRANSFER W GB. SHE IS A/O X1-2, FORGETFUL. LIGHT BEDBATH PROVIDED, IV D/C INTACT. RN D/C TRUCK CRANE OPERATOR [facility], [facility]1983 ARRANGING TRANSPORTATION.
--- NOTE | 2019-03-28 13:40 | NUR ---
report called to juan antonio plata rn. discharge planning [facility] w/c van transport @ approx 1400.
== END 2019-03-28 14:15 | disposition home or self-care (01) ==
LOC: ER 11:12 → MEDS 11:13 → ENPENDDIS 03-28 11:24 → MEDS 03-28 14:15
PROVIDERS: Emergency Medicine; Internal Medicine Gastroenterology; ADMIT Internal Medicine
PROC: 0DB68ZX Excision of Stomach, Via Natural or Artificial Opening Endoscopic, Diagnostic (ICD-10-PCS; principal; 2019-03-26 10:30)
PROC: 0DB18ZX Excision of Upper Esophagus, Via Natural or Artificial Opening Endoscopic, Diagnostic (ICD-10-PCS; principal; 2019-03-26 10:30)
DX: L12.1 Cicatricial pemphigoid (principal); L12.0 Bullous pemphigoid; K20.8 Other esophagitis; K31.89 Other diseases of stomach and duodenum; K26.9 Duodenal ulcer, unspecified as acute or chronic, without hemorrhage or perforation; J39.2 Other diseases of pharynx; G30.9 Alzheimer's disease, unspecified; F02.80 Dementia in other diseases classified elsewhere, unspecified severity, without behavioral disturbance, psychotic disturbance, mood disturbance, and anxiety; G35 Multiple sclerosis; G40.909 Epilepsy, unspecified, not intractable, without status epilepticus; F32.9 Major depressive disorder, single episode, unspecified; F41.9 Anxiety disorder, unspecified; E03.9 Hypothyroidism, unspecified; F17.210 Nicotine dependence, cigarettes, uncomplicated; I73.9 Peripheral vascular disease, unspecified; E66.9 Obesity, unspecified; Z68.32 Body mass index [BMI] 32.0-32.9, adult; Z90.49 Acquired absence of other specified parts of digestive tract; Z79.52 Long term (current) use of systemic steroids; Z79.899 Other long term (current) drug therapy; Z99.3 Dependence on wheelchair; Z86.73 Personal history of transient ischemic attack (TIA), and cerebral infarction without residual deficits
CPT/HCPCS: 36415; 70360; 80047; 80053; 80069; 85014; 85025; 85027; 88305; 88312; 88342; 96361; 96375; 96376; 97110; 97162; 97165; 97530; 99284-25; C1751; C9113; G0378; J0360; J1650; J2405; J2704; J2920; J7120; J7512; J7517

== ENCOUNTER 2019-04-03 17:47 | Inpatient (IN) | payer OTHER ==
[~2019-04-03] VITALS: Ht 162.6 cm; Wt 66.7 kg
[~2019-04-03 17:47] MED LIST changes: +BUDESONIDE ER9 MG PO
[2019-04-03] MEDS ORDERED: DONEPEZIL HCL10 MG PO (19:41)
[2019-04-03] MEDS ORDERED: LEVSOD75 PO (19:42)
[2019-04-03] MEDS ORDERED: Prozac40 MG PO (19:42)
[2019-04-03] MEDS ORDERED: SIMV10 PO (19:43)
[2019-04-03] MEDS ORDERED: ACET325 PO (19:43)
[2019-04-03] MEDS ORDERED: NIACIN500 MG PO (19:44)
[2019-04-03] MEDS ORDERED: BISA10S PR (19:45)
[2019-04-03] MEDS ORDERED: THERA-D2000 UNIT PO (19:45)
[2019-04-03] MEDS ORDERED: Advil200 M1 PO (19:46)
[2019-04-03] MEDS ORDERED: Halobetasol Pro15 GM TOP (19:46)
[2019-04-03] MEDS ORDERED: Tegretol Xr400 MG PO (19:47)
[2019-04-03] MEDS ORDERED: MILK OF MA400 MG/5 M PO (19:48)
[2019-04-03] MEDS ORDERED: [UNRECOGNIZED DRUG - OTHER] TOP ×2 (19:49→19:58)
[2019-04-03] MEDS ORDERED: PRED20 PO (19:49)
[2019-04-03] MEDS ORDERED: Florastor250 MG PO (19:50)
[2019-04-03] MEDS ORDERED: SUCR1 PO (19:50)
[2019-04-03] MEDS ORDERED: PANT40 PO (19:50)
[2019-04-03] MEDS ORDERED: MYCO250 PO (19:50)
[2019-04-03] MEDS ORDERED: ASPI81CH PO (19:51)
[2019-04-03] MEDS ORDERED: Norco 5-325 Ta1 EACH PO (19:52)
[2019-04-03] MEDS ORDERED: Minocycline HC100 M1 PO (19:53)
[2019-04-03] MEDS ORDERED: Eq Liquid Anta769 ML PO (19:54)
[2019-04-03] MEDS ORDERED: Secura Protecti50 GM TOP (19:55)
[2019-04-03] MEDS ORDERED: TIZA4 PO (19:56)
[2019-04-03] MEDS ORDERED: ONDA4ODT PO (19:57)
[2019-04-03 20:56] LABS: BASOPHILS ABSOLUTE AUTO 0.02 K/mm3 (0.00-0.23); BASOPHILS PERCENT AUTO 0 % (0-2); EOSINOPHILS PERCENT AUTO 0 % (0-6); Hematocrit 36.2 % (33.0-51.0); Hemoglobin 11.3 g/dL (11.5-16.0); IMMATURE GRAN ABSOLUTE AUTO 0.04 K/mm3 (0.00-0.10); IMMATURE GRAN PERCENT AUTO 0 % (0-1); LYMPHOCYTES ABSOLUTE AUTO 0.64 K/mm3 (0.84-5.20); LYMPHOCYTES PERCENT AUTO 5 % (21-46); MONOCYTES ABSOLUTE AUTO 0.64 K/mm3 (0.16-1.47); MONOCYTES PERCENT AUTO 5 % (4-13); Mean Corpuscular HGB 30.1 pg (26.0-34.0); Mean Corpuscular HGB Conc 31.2 g/dL (31.5-36.5); Mean Corpuscular Volume 97 fL (80-100); Mean Platelet Volume 9.2 fL (9.1-12.4); NEUTROPHILS ABSOLUTE AUTO 11.56 K/mm3 (1.96-9.15); NEUTROPHILS PERCENT AUTO 90 % (41-73); Platelet Count 325 K/mm3 (150-400); RDW Coefficient Variation 14.2 % (11.7-14.2); Red Blood Cell Count 3.75 M/mm3 (3.80-5.20)
[2019-04-03 21:16] LABS: Alanine Aminotransfer (ALT/SGP 19 U/L (12-78); Albumin, Blood 2.2 g/dL (3.4-5.0); Albumin/Globulin Ratio 0.6 (0.8-1.8); Alk Phos 67 U/L (50-136); Anion Gap 7 mmol/L (6-16); Aspartate Aminotrans (AST/SGOT 7 U/L (12-37); Bilirubin, Total 0.1 mg/dL (0.1-1.0); Blood Urea Nitrogen 21 mg/dL (8-24); Bun/Creatinine Ratio 31.3 (12.0-20.0); CO2, Blood 23 mmol/L (21-32); Calcium, Blood 7.8 mg/dL (8.5-10.1); Chloride, Blood 112 mmol/L (98-108); Creatinine, Blood 0.67 mg/dL (0.40-1.00); Globulin, Blood 3.7 g/dL (2.2-4.0); Glomerular Filtration Rate >60 (60-); Glucose, Blood 146 mg/dL (70-99); Potassium, Blood 3.9 mmol/L (3.5-5.5); Sodium, Blood 142 mmol/L (136-145); Total Protein, Blood 5.9 g/dL (6.4-8.2)
[2019-04-04] MEDS ORDERED: MYCO250 PO (00:30)
[2019-04-04 05:12] LABS: BASOPHILS ABSOLUTE AUTO 0.02 K/mm3 (0.00-0.23); BASOPHILS PERCENT AUTO 0 % (0-2); EOSINOPHILS PERCENT AUTO 0 % (0-6); Hematocrit 34.8 % (33.0-51.0); Hemoglobin 10.9 g/dL (11.5-16.0); IMMATURE GRAN ABSOLUTE AUTO 0.05 K/mm3 (0.00-0.10); IMMATURE GRAN PERCENT AUTO 0 % (0-1); LYMPHOCYTES ABSOLUTE AUTO 1.17 K/mm3 (0.84-5.20); LYMPHOCYTES PERCENT AUTO 10 % (21-46); MONOCYTES ABSOLUTE AUTO 0.57 K/mm3 (0.16-1.47); MONOCYTES PERCENT AUTO 5 % (4-13); Mean Corpuscular HGB 29.9 pg (26.0-34.0); Mean Corpuscular HGB Conc 31.3 g/dL (31.5-36.5); Mean Corpuscular Volume 96 fL (80-100); Mean Platelet Volume 9.7 fL (9.1-12.4); NEUTROPHILS ABSOLUTE AUTO 9.57 K/mm3 (1.96-9.15); NEUTROPHILS PERCENT AUTO 84 % (41-73); Platelet Count 354 K/mm3 (150-400); RDW Coefficient Variation 14.2 % (11.7-14.2); RDW Standard Deviation 49.8 fL (35.1-46.3); Red Blood Cell Count 3.64 M/mm3 (3.80-5.20); White Blood Cell Count 11.38 K/mm3 (4.00-11.30)
[2019-04-04 05:32] LABS: Anion Gap 7 mmol/L (6-16); Blood Urea Nitrogen 18 mg/dL (8-24); Bun/Creatinine Ratio 28.8 (12.0-20.0); CO2, Blood 24 mmol/L (21-32); Calcium, Blood 7.8 mg/dL (8.5-10.1); Chloride, Blood 114 mmol/L (98-108); Creatinine, Blood 0.62 mg/dL (0.40-1.00); Glomerular Filtration Rate >60 (60-); Glucose, Blood 116 mg/dL (70-99); Potassium, Blood 4.3 mmol/L (3.5-5.5); Sodium, Blood 145 mmol/L (136-145)
[2019-04-05 05:20] LABS: Alanine Aminotransfer (ALT/SGP 18 U/L (12-78); Albumin/Globulin Ratio 0.6 (0.8-1.8); Alk Phos 59 U/L (50-136); Anion Gap 5 mmol/L (6-16); Aspartate Aminotrans (AST/SGOT 7 U/L (12-37); Bilirubin, Total 0.2 mg/dL (0.1-1.0); Blood Urea Nitrogen 15 mg/dL (8-24); Bun/Creatinine Ratio 23.4 (12.0-20.0); CO2, Blood 24 mmol/L (21-32); Chloride, Blood 116 mmol/L (98-108); Creatinine, Blood 0.64 mg/dL (0.40-1.00); Globulin, Blood 3.4 g/dL (2.2-4.0); Glomerular Filtration Rate >60 (60-); Glucose, Blood 91 mg/dL (70-99); Potassium, Blood 4.2 mmol/L (3.5-5.5); Sodium, Blood 145 mmol/L (136-145); Total Protein, Blood 5.4 g/dL (6.4-8.2)
[2019-04-08 05:42] LABS: BASOPHILS ABSOLUTE AUTO 0.03 K/mm3 (0.00-0.23); BASOPHILS PERCENT AUTO 1 % (0-2); EOSINOPHILS ABSOLUTE AUTO 0.05 K/mm3 (0.00-0.68); EOSINOPHILS PERCENT AUTO 1 % (0-6); Hematocrit 31.7 % (33.0-51.0); Hemoglobin 9.9 g/dL (11.5-16.0); IMMATURE GRAN ABSOLUTE AUTO 0.03 K/mm3 (0.00-0.10); IMMATURE GRAN PERCENT AUTO 1 % (0-1); LYMPHOCYTES ABSOLUTE AUTO 1.24 K/mm3 (0.84-5.20); LYMPHOCYTES PERCENT AUTO 21 % (21-46); MONOCYTES ABSOLUTE AUTO 0.51 K/mm3 (0.16-1.47); MONOCYTES PERCENT AUTO 9 % (4-13); Mean Corpuscular HGB 30.1 pg (26.0-34.0); Mean Corpuscular HGB Conc 31.2 g/dL (31.5-36.5); Mean Corpuscular Volume 96 fL (80-100); Mean Platelet Volume 9.2 fL (9.1-12.4); NEUTROPHILS ABSOLUTE AUTO 4.08 K/mm3 (1.96-9.15); NEUTROPHILS PERCENT AUTO 69 % (41-73); Platelet Count 321 K/mm3 (150-400); RDW Coefficient Variation 14.2 % (11.7-14.2); RDW Standard Deviation 50.4 fL (35.1-46.3); Red Blood Cell Count 3.29 M/mm3 (3.80-5.20); White Blood Cell Count 5.94 K/mm3 (4.00-11.30)
[2019-04-08 05:55] LABS: International Normalized Ratio 0.9; Prothrombin Time Results 9.7 Sec (9.7-11.5)
[2019-04-08 06:25] LABS: Anion Gap 6 mmol/L (6-16); Blood Urea Nitrogen 11 mg/dL (8-24); Bun/Creatinine Ratio 19.3 (12.0-20.0); CO2, Blood 24 mmol/L (21-32); Calcium, Blood 7.8 mg/dL (8.5-10.1); Chloride, Blood 112 mmol/L (98-108); Creatinine, Blood 0.57 mg/dL (0.40-1.00); Glomerular Filtration Rate >60 (60-); Glucose, Blood 95 mg/dL (70-99); Potassium, Blood 4.5 mmol/L (3.5-5.5); Sodium, Blood 142 mmol/L (136-145)
[2019-04-11 05:40] LABS: Anion Gap 7 mmol/L (6-16); Blood Urea Nitrogen 15 mg/dL (8-24); Bun/Creatinine Ratio 24.8 (12.0-20.0); CO2, Blood 28 mmol/L (21-32); Chloride, Blood 103 mmol/L (98-108); Creatinine, Blood 0.61 mg/dL (0.40-1.00); Glomerular Filtration Rate >60 (60-); Glucose, Blood 88 mg/dL (70-99); Phosphorus, Blood 3.2 mg/dL (2.5-4.9); Potassium, Blood 4.7 mmol/L (3.5-5.5); Sodium, Blood 138 mmol/L (136-145)
[2019-04-13 04:35] LABS: BASOPHILS ABSOLUTE AUTO 0.03 K/mm3 (0.00-0.23); BASOPHILS PERCENT AUTO 1 % (0-2); EOSINOPHILS ABSOLUTE AUTO 0.04 K/mm3 (0.00-0.68); EOSINOPHILS PERCENT AUTO 1 % (0-6); Hematocrit 31.8 % (33.0-51.0); Hemoglobin 10.1 g/dL (11.5-16.0); IMMATURE GRAN ABSOLUTE AUTO 0.04 K/mm3 (0.00-0.10); IMMATURE GRAN PERCENT AUTO 1 % (0-1); LYMPHOCYTES ABSOLUTE AUTO 1.12 K/mm3 (0.84-5.20); LYMPHOCYTES PERCENT AUTO 17 % (21-46); MONOCYTES ABSOLUTE AUTO 0.51 K/mm3 (0.16-1.47); MONOCYTES PERCENT AUTO 8 % (4-13); Mean Corpuscular HGB 29.5 pg (26.0-34.0); Mean Corpuscular HGB Conc 31.8 g/dL (31.5-36.5); Mean Corpuscular Volume 93 fL (80-100); Mean Platelet Volume 8.8 fL (9.1-12.4); NEUTROPHILS ABSOLUTE AUTO 4.78 K/mm3 (1.96-9.15); NEUTROPHILS PERCENT AUTO 73 % (41-73); Platelet Count 204 K/mm3 (150-400); RDW Coefficient Variation 14.6 % (11.7-14.2); RDW Standard Deviation 49.4 fL (35.1-46.3); Red Blood Cell Count 3.42 M/mm3 (3.80-5.20); White Blood Cell Count 6.52 K/mm3 (4.00-11.30)
[2019-04-13 05:02] LABS: Alanine Aminotransfer (ALT/SGP 36 U/L (12-78); Albumin, Blood 1.9 g/dL (3.4-5.0); Albumin/Globulin Ratio 0.5 (0.8-1.8); Alk Phos 61 U/L (50-136); Anion Gap 6 mmol/L (6-16); Aspartate Aminotrans (AST/SGOT 28 U/L (12-37); Bilirubin, Total 0.3 mg/dL (0.1-1.0); Blood Urea Nitrogen 22 mg/dL (8-24); Bun/Creatinine Ratio 34.5 (12.0-20.0); CO2, Blood 28 mmol/L (21-32); Calcium, Blood 7.8 mg/dL (8.5-10.1); Chloride, Blood 102 mmol/L (98-108); Creatinine, Blood 0.64 mg/dL (0.40-1.00); Globulin, Blood 3.7 g/dL (2.2-4.0); Glomerular Filtration Rate >60 (60-); Glucose, Blood 116 mg/dL (70-99); Potassium, Blood 4.3 mmol/L (3.5-5.5); Sodium, Blood 136 mmol/L (136-145); Total Protein, Blood 5.6 g/dL (6.4-8.2)
[2019-04-16 05:22] LABS: BASOPHILS ABSOLUTE AUTO 0.02 K/mm3 (0.00-0.23); BASOPHILS PERCENT AUTO 0 % (0-2); EOSINOPHILS ABSOLUTE AUTO 0.06 K/mm3 (0.00-0.68); EOSINOPHILS PERCENT AUTO 1 % (0-6); Hematocrit 32.2 % (33.0-51.0); Hemoglobin 10.5 g/dL (11.5-16.0); IMMATURE GRAN ABSOLUTE AUTO 0.07 K/mm3 (0.00-0.10); IMMATURE GRAN PERCENT AUTO 1 % (0-1); LYMPHOCYTES ABSOLUTE AUTO 1.53 K/mm3 (0.84-5.20); LYMPHOCYTES PERCENT AUTO 19 % (21-46); MONOCYTES ABSOLUTE AUTO 0.67 K/mm3 (0.16-1.47); MONOCYTES PERCENT AUTO 8 % (4-13); Mean Corpuscular HGB 30.1 pg (26.0-34.0); Mean Corpuscular HGB Conc 32.6 g/dL (31.5-36.5); Mean Corpuscular Volume 92 fL (80-100); Mean Platelet Volume 9.4 fL (9.1-12.4); NEUTROPHILS ABSOLUTE AUTO 5.76 K/mm3 (1.96-9.15); NEUTROPHILS PERCENT AUTO 71 % (41-73); Platelet Count 248 K/mm3 (150-400); RDW Coefficient Variation 14.7 % (11.7-14.2); RDW Standard Deviation 49.1 fL (35.1-46.3); Red Blood Cell Count 3.49 M/mm3 (3.80-5.20); White Blood Cell Count 8.11 K/mm3 (4.00-11.30)
[2019-04-16 05:42] LABS: Anion Gap 6 mmol/L (6-16); Blood Urea Nitrogen 29 mg/dL (8-24); Bun/Creatinine Ratio 50.7 (12.0-20.0); CO2, Blood 28 mmol/L (21-32); Calcium, Blood 8.2 mg/dL (8.5-10.1); Chloride, Blood 100 mmol/L (98-108); Creatinine, Blood 0.57 mg/dL (0.40-1.00); Glomerular Filtration Rate >60 (60-); Glucose, Blood 103 mg/dL (70-99); Phosphorus, Blood 3.7 mg/dL (2.5-4.9); Potassium, Blood 4.6 mmol/L (3.5-5.5); Sodium, Blood 134 mmol/L (136-145)
[2019-04-17 04:50] LABS: Albumin, Blood 2.1 g/dL (3.4-5.0); Anion Gap 5 mmol/L (6-16); Blood Urea Nitrogen 28 mg/dL (8-24); Bun/Creatinine Ratio 52.8 (12.0-20.0); CO2, Blood 29 mmol/L (21-32); Chloride, Blood 100 mmol/L (98-108); Creatinine, Blood 0.53 mg/dL (0.40-1.00); Glomerular Filtration Rate >60 (60-); Glucose, Blood 104 mg/dL (70-99); Phosphorus, Blood 3.7 mg/dL (2.5-4.9); Potassium, Blood 4.7 mmol/L (3.5-5.5); Sodium, Blood 134 mmol/L (136-145)
[2019-04-18 06:10] LABS: Albumin, Blood 2.1 g/dL (3.4-5.0); Anion Gap 6 mmol/L (6-16); Blood Urea Nitrogen 28 mg/dL (8-24); Bun/Creatinine Ratio 52.9 (12.0-20.0); CO2, Blood 28 mmol/L (21-32); Chloride, Blood 98 mmol/L (98-108); Creatinine, Blood 0.53 mg/dL (0.40-1.00); Glomerular Filtration Rate >60 (60-); Glucose, Blood 98 mg/dL (70-99); Phosphorus, Blood 3.4 mg/dL (2.5-4.9); Potassium, Blood 4.6 mmol/L (3.5-5.5); Sodium, Blood 132 mmol/L (136-145)
[2019-04-18] MEDS ORDERED: AMLO5 PO (13:49)
[2019-04-18] MEDS ORDERED: DIPH12.5EL MT (13:50)
[2019-04-18] MEDS ORDERED: Xylocaine5 M1 MT (13:50)
[2019-04-18] MEDS ORDERED: NYST100000 MT (13:51)
== END 2019-04-18 15:08 | DRG 595 ==
LOC: ER 17:47 → PCU 19:46 → MEDS 22:51
PROVIDERS: Emergency Medicine; Internal Medicine; Nurse Practitioner Acute Care; ADMIT Hospitalist
DX: L12.0 Bullous pemphigoid (principal); E43 Unspecified severe protein-calorie malnutrition; Z68.44 Body mass index [BMI] 60.0-69.9, adult; Z79.84 Long term (current) use of oral hypoglycemic drugs; G35 Multiple sclerosis; G40.909 Epilepsy, unspecified, not intractable, without status epilepticus; E03.9 Hypothyroidism, unspecified; I73.9 Peripheral vascular disease, unspecified; Z87.891 Personal history of nicotine dependence; Z66 Do not resuscitate; E78.5 Hyperlipidemia, unspecified; G30.9 Alzheimer's disease, unspecified; F02.80 Dementia in other diseases classified elsewhere, unspecified severity, without behavioral disturbance, psychotic disturbance, mood disturbance, and anxiety; K21.9 Gastro-esophageal reflux disease without esophagitis; E66.9 Obesity, unspecified
CPT/HCPCS: 36415; 80048; 80053; 80069; 83880; 85025; 85610; 92526; 92610; 96361; 96374; 97110; 97162; 97166; 97530; 97535; 99284-25; A9270; A9270-GY; C1751; C9113; J1450; J1650; J2930; J3480; J7030; J7050; J7512; J7517

== ENCOUNTER → 2019-05-04 | Outpatient (CLI) | payer OTHER ==
[~2019-05-04] MED LIST changes: +AMLO5 PO; +ASPI81CH PO; +DIPH12.5EL MT; +Eq Liquid Anta769 ML PO; +Florastor250 MG PO; +LEVSOD75 PO; +MILK OF MA400 MG/5 M PO; +MYCO250 PO; +Minocycline HC100 M1 PO; +NIACIN500 MG PO; +NYST100000 MT; +Norco 5-325 Ta1 EACH PO; +ONDA4ODT PO; +PANT40 PO; +PRED20 PO; +SUCR1 PO; +Secura Protecti50 GM TOP; +THERA-D2000 UNIT PO; +TIZA4 PO; +Tegretol Xr400 MG PO; +Xylocaine5 M1 MT
== END | disposition home or self-care (01) ==
LOC: LAB 16:29 → LAB SHORT 16:29
DX: L08.0 Pyoderma (principal)
CPT/HCPCS: 87070; 87077; 87147; 87186; 87205

== ENCOUNTER → 2019-12-03 | Outpatient (CLI) | payer OTHER ==
[2019-12-03 20:15] LABS: Appearance, Urine Hazy (Clear); Bilirubin, Urine Neg (Neg); Blood, Urine 1+ (Neg); Color, Urine Yellow (P-Yellow); Glucose Qualitative, Urine Neg (Neg); Ketones, Urine Neg (Neg); Leukocyte Esterase, Urine 1+ (Neg); Nitrite, Urine Neg (Neg); Protein, Urine 1+ (Neg); Specific Gravity, Urine 1.015 (1.003-1.022); Urobilinogen, Urine NORM (Normal)
[2019-12-03 20:24] LABS: Bacteria Mod /hpf; Hyaline Casts 0-2 /lpf (0-2); Red Blood Cells, Urine 0-2 /hpf (0-2); Squamous Epithelial Cells Mod /hpf (Few); Yeast/Fungi Urine Mod /hpf
[2019-12-03 20:25] LABS: Mucus Mod (0-Heavy)
== END | disposition home or self-care (01) ==
LOC: EDSTATUS 13:41 → LAB UVN 17:45
PROVIDERS: Nurse Practitioner Adult Health
DX: N39.0 Urinary tract infection, site not specified (principal); R82.90 Unspecified abnormal findings in urine
CPT/HCPCS: 81001; 87077; 87086; 87186

== ENCOUNTER → 2020-01-09 | Outpatient (CLI) | payer OTHER ==
[2020-01-09 06:21] LABS: Source, Urine Clean Catch
[2020-01-09 06:28] LABS: BASOPHILS ABSOLUTE AUTO 0.07 K/mm3 (0.00-0.23); BASOPHILS PERCENT AUTO 1 % (0-2); EOSINOPHILS ABSOLUTE AUTO 0.19 K/mm3 (0.00-0.68); EOSINOPHILS PERCENT AUTO 3 % (0-6); Hematocrit 35.8 % (33.0-51.0); Hemoglobin 11.4 g/dL (11.5-16.0); IMMATURE GRAN ABSOLUTE AUTO 0.01 K/mm3 (0.00-0.10); IMMATURE GRAN PERCENT AUTO 0 % (0-1); LYMPHOCYTES ABSOLUTE AUTO 2.16 K/mm3 (0.84-5.20); LYMPHOCYTES PERCENT AUTO 36 % (21-46); MONOCYTES ABSOLUTE AUTO 0.43 K/mm3 (0.16-1.47); MONOCYTES PERCENT AUTO 7 % (4-13); Mean Corpuscular HGB 28.6 pg (26.0-34.0); Mean Corpuscular HGB Conc 31.8 g/dL (31.5-36.5); Mean Corpuscular Volume 90 fL (80-100); Mean Platelet Volume 10.4 fL (9.1-12.4); NEUTROPHILS ABSOLUTE AUTO 3.15 K/mm3 (1.96-9.15); NEUTROPHILS PERCENT AUTO 52 % (41-73); Platelet Count 262 K/mm3 (150-400); RDW Coefficient Variation 13.3 % (11.7-14.2); RDW Standard Deviation 43.8 fL (35.1-46.3); Red Blood Cell Count 3.99 M/mm3 (3.80-5.20); White Blood Cell Count 6.01 K/mm3 (4.00-11.30)
[2020-01-09 06:29] LABS: Bilirubin, Urine Neg (Neg); Blood, Urine Neg (Neg); Glucose Qualitative, Urine Neg (Neg); Ketones, Urine Neg (Neg); Leukocyte Esterase, Urine Neg (Neg); Nitrite, Urine Pos (Neg); Protein, Urine Neg (Neg); Urobilinogen, Urine NORM (Normal)
[2020-01-09 06:38] LABS: Appearance, Urine Hazy (Clear); Bacteria Mod /hpf; Color, Urine Yellow (P-Yellow); Red Blood Cells, Urine Not Seen /hpf (0-2); Squamous Epithelial Cells Rare /hpf (Few); White Blood Cells, Urine Not Seen /hpf (0-5)
[2020-01-09 06:58] LABS: Alanine Aminotransfer (ALT/SGP 16 U/L (12-78); Albumin, Blood 3.1 g/dL (3.4-5.0); Albumin/Globulin Ratio 0.9 (0.8-1.8); Alk Phos 163 U/L (50-136); Anion Gap 7 mmol/L (6-16); Aspartate Aminotrans (AST/SGOT 10 U/L (12-37); Bilirubin, Total 0.2 mg/dL (0.1-1.0); Blood Urea Nitrogen 18 mg/dL (8-24); CO2, Blood 27 mmol/L (21-32); Calcium, Blood 8.3 mg/dL (8.5-10.1); Chloride, Blood 108 mmol/L (98-108); Globulin, Blood 3.3 g/dL (2.2-4.0); Glucose, Blood 86 mg/dL (70-99); Potassium, Blood 3.9 mmol/L (3.5-5.5); Sodium, Blood 142 mmol/L (136-145); Total Protein, Blood 6.4 g/dL (6.4-8.2)
[2020-01-09 07:00] LABS: Bun/Creatinine Ratio 27.1 (12.0-20.0); Creatinine, Blood 0.66 mg/dL (0.40-1.00); Glomerular Filtration Rate >60 (60-)
== END | disposition home or self-care (01) ==
LOC: LAB UVN 06:17 → EDSTATUS 14:54
PROVIDERS: Family Medicine
DX: N39.0 Urinary tract infection, site not specified (principal)
CPT/HCPCS: 80053; 81001; 85025; 87077; 87086; 87186

== ENCOUNTER → 2020-03-08 | Outpatient (CLI) | payer OTHER ==
[2020-03-08 05:14] LABS: Bilirubin, Urine Neg (Neg); Blood, Urine 3+ (Neg); Glucose Qualitative, Urine Neg (Neg); Ketones, Urine Neg (Neg); Leukocyte Esterase, Urine 3+ (Neg); Nitrite, Urine Pos (Neg); Protein, Urine 3+ (Neg); Urobilinogen, Urine NORM (Normal)
[2020-03-08 05:44] LABS: Appearance, Urine Hazy (Clear); Color, Urine Yellow (P-Yellow)
[2020-03-08 05:45] LABS: Bacteria Many /hpf; Squamous Epithelial Cells Few /hpf (Few); White Blood Cells, Urine TNTC /hpf (0-5)
== END | disposition home or self-care (01) ==
LOC: LAB UVN 05:07 → EDSTATUS 15:20
PROVIDERS: Family Medicine
DX: N39.0 Urinary tract infection, site not specified (principal)
CPT/HCPCS: 81001; 87077; 87086; 87186

== ENCOUNTER → 2020-05-02 | Outpatient (CLI) | payer OTHER ==
[2020-05-02 10:10] LABS: Appearance, Urine Cloudy (Clear); Bilirubin, Urine Neg (Neg); Blood, Urine 2+ (Neg); Color, Urine Yellow (P-Yellow); Glucose Qualitative, Urine Neg (Neg); Ketones, Urine Neg (Neg); Leukocyte Esterase, Urine 3+ (Neg); Nitrite, Urine Neg (Neg); Protein, Urine 2+ (Neg); Specific Gravity, Urine 1.015 (1.003-1.022); Urobilinogen, Urine NORM (Normal)
[2020-05-02 10:23] LABS: White Blood Cells, Urine TNTC /hpf (0-5)
[2020-05-02 10:25] LABS: Bacteria Mod /hpf; Red Blood Cells, Urine 0-2 /hpf (0-2); Squamous Epithelial Cells Few /hpf (Few)
== END | disposition home or self-care (01) ==
LOC: LAB UVN 09:50 → EDSTATUS 12:45
PROVIDERS: Family Medicine
DX: N39.0 Urinary tract infection, site not specified (principal)
CPT/HCPCS: 81001; 87077; 87086; 87186

== ENCOUNTER → 2020-09-04 | Outpatient (CLI) | payer OTHER ==
[2020-09-04 06:27] LABS: BASOPHILS ABSOLUTE AUTO 0.04 K/mm3 (0.00-0.23); BASOPHILS PERCENT AUTO 1 % (0-2); EOSINOPHILS ABSOLUTE AUTO 0.08 K/mm3 (0.00-0.68); EOSINOPHILS PERCENT AUTO 2 % (0-6); Hematocrit 34.8 % (33.0-51.0); Hemoglobin 11.1 g/dL (11.5-16.0); IMMATURE GRAN ABSOLUTE AUTO 0.01 K/mm3 (0.00-0.10); IMMATURE GRAN PERCENT AUTO 0 % (0-1); LYMPHOCYTES ABSOLUTE AUTO 1.68 K/mm3 (0.84-5.20); LYMPHOCYTES PERCENT AUTO 35 % (21-46); MONOCYTES ABSOLUTE AUTO 0.39 K/mm3 (0.16-1.47); MONOCYTES PERCENT AUTO 8 % (4-13); Mean Corpuscular HGB 28.5 pg (26.0-34.0); Mean Corpuscular HGB Conc 31.9 g/dL (31.5-36.5); Mean Corpuscular Volume 90 fL (80-100); Mean Platelet Volume 10.7 fL (9.1-12.4); NEUTROPHILS ABSOLUTE AUTO 2.66 K/mm3 (1.96-9.15); NEUTROPHILS PERCENT AUTO 55 % (41-73); Platelet Count 220 K/mm3 (150-400); RDW Coefficient Variation 13.8 % (11.7-14.2); RDW Standard Deviation 44.8 fL (35.1-46.3); Red Blood Cell Count 3.89 M/mm3 (3.80-5.20); White Blood Cell Count 4.86 K/mm3 (4.00-11.30)
[2020-09-04 06:46] LABS: Anion Gap 3 mmol/L (6-16); Blood Urea Nitrogen 16 mg/dL (8-24); Bun/Creatinine Ratio 22.3 (12.0-20.0); CO2, Blood 29 mmol/L (21-32); Calcium, Blood 8.1 mg/dL (8.5-10.1); Chloride, Blood 106 mmol/L (98-108); Creatinine, Blood 0.72 mg/dL (0.40-1.00); Glomerular Filtration Rate >60 (60-); Glucose, Blood 88 mg/dL (70-99); Potassium, Blood 4.1 mmol/L (3.5-5.5); Sodium, Blood 138 mmol/L (136-145)
== END | disposition home or self-care (01) ==
LOC: LAB UVN 06:16 → EDSTATUS 11:01
PROVIDERS: Internal Medicine
DX: N18.9 Chronic kidney disease, unspecified (principal); D63.1 Anemia in chronic kidney disease
CPT/HCPCS: 80048; 85025

== ENCOUNTER → 2020-09-07 | Outpatient (CLI) | payer OTHER ==
[2020-09-07 06:11] LABS: Albumin, Blood 3.4 g/dL (3.4-5.0); Anion Gap 4 mmol/L (6-16); Blood Urea Nitrogen 17 mg/dL (8-24); Bun/Creatinine Ratio 22.9 (12.0-20.0); CO2, Blood 29 mmol/L (21-32); Calcium, Blood 8.4 mg/dL (8.5-10.1); Chloride, Blood 105 mmol/L (98-108); Creatinine, Blood 0.74 mg/dL (0.40-1.00); Glomerular Filtration Rate >60 (60-); Glucose, Blood 90 mg/dL (70-99); Phosphorus, Blood 3.4 mg/dL (2.5-4.9); Potassium, Blood 4.1 mmol/L (3.5-5.5); Sodium, Blood 138 mmol/L (136-145)
== END | disposition home or self-care (01) ==
LOC: LAB UVN 05:44 → EDSTATUS 11:02
PROVIDERS: Internal Medicine
DX: G35 Multiple sclerosis (principal); L21.0 Seborrhea capitis; M62.81 Muscle weakness (generalized); Z74.09 Other reduced mobility; Z74.1 Need for assistance with personal care; G89.29 Other chronic pain; R27.8 Other lack of coordination; R41.841 Cognitive communication deficit; G47.00 Insomnia, unspecified; E03.9 Hypothyroidism, unspecified; E78.5 Hyperlipidemia, unspecified; F33.9 Major depressive disorder, recurrent, unspecified; F41.9 Anxiety disorder, unspecified; G30.8 Other Alzheimer's disease; G40.89 Other seizures; I10 Essential (primary) hypertension; I73.9 Peripheral vascular disease, unspecified; K21.9 Gastro-esophageal reflux disease without esophagitis
CPT/HCPCS: 80069

== ENCOUNTER → 2020-09-11 | Outpatient (CLI) | payer OTHER | END | disposition home or self-care (01) | LOC: EDSTATUS 11:04 → LAB UVN 22:12 | DX: E03.9 Hypothyroidism, unspecified (principal) | CPT/HCPCS: 84443 ==

== ENCOUNTER → 2021-04-10 | Outpatient (CLI) | payer OTHER ==
[~2021-04-10] MED LIST changes: +ARTIFICIAL TEAR15 M2 BOTHEYES; +ASCO500 PO; +DEXA6 PO; +DULCOLAX400 MG/5 M PO; +ELIQUIS5 M2 PO; +FAMO20 PO; +FERSU300 PO; +FLUO10 PO; -MILK OF MA400 MG/5 M PO; +MYCOPHENOLATE500 MG PO; +PANT20 PO; +SULTRIDS PO; +TRAM50 PO; +VISBIOME 112.51 EACH PO
[2021-04-10 11:20] LABS: Source, Urine Clean Catch
[2021-04-10 12:18] LABS: Appearance, Urine Clear (Clear); Bilirubin, Urine Neg (Neg); Blood, Urine 3+ (Neg); Color, Urine Yellow (P-Yellow); Glucose Qualitative, Urine Neg (Neg); Ketones, Urine Neg (Neg); Leukocyte Esterase, Urine 3+ (Neg); Nitrite, Urine Pos (Neg); Protein, Urine 2+ (Neg); Specific Gravity, Urine 1.015 (1.003-1.022); Urobilinogen, Urine NORM (Normal)
[2021-04-10 12:32] LABS: Bacteria Many /hpf; Squamous Epithelial Cells Few /hpf (Few)
[2021-04-10 12:33] LABS: Amorphous Not Seen (0-Heavy); Mucus Light (0-Heavy); WBC Cast 0-2 /lpf (0)
== END | disposition home or self-care (01) ==
LOC: EDSTATUS 10:27 → LAB UVN 11:18
PROVIDERS: Internal Medicine
DX: N39.0 Urinary tract infection, site not specified (principal)
CPT/HCPCS: 81001; 87077; 87086; 87186

== ENCOUNTER 2021-04-11 22:25 | Inpatient (IN) | payer OTHER ==
[~2021-04-11] VITALS: Ht 167.6 cm; Wt 152.6 kg
[~2021-04-11 22:25] MED LIST changes: -ARTIFICIAL TEAR15 M2 BOTHEYES; -ASCO500 PO; -DEXA6 PO; -ELIQUIS5 M2 PO; -FAMO20 PO; -FERSU300 PO; -MYCOPHENOLATE500 MG PO; -PANT20 PO; -SULTRIDS PO; -TRAM50 PO; -VISBIOME 112.51 EACH PO
[2021-04-11 23:14] LABS: BASOPHILS ABSOLUTE AUTO 0.02 K/mm3 (0.00-0.23); BASOPHILS PERCENT AUTO 0 % (0-2); EOSINOPHILS PERCENT AUTO 0 % (0-6); Hematocrit 43.6 % (33.0-51.0); Hemoglobin 13.7 g/dL (11.5-16.0); IMMATURE GRAN ABSOLUTE AUTO 0.03 K/mm3 (0.00-0.10); IMMATURE GRAN PERCENT AUTO 0 % (0-1); LYMPHOCYTES PERCENT AUTO 12 % (21-46); MONOCYTES ABSOLUTE AUTO 0.93 K/mm3 (0.16-1.47); MONOCYTES PERCENT AUTO 9 % (4-13); Mean Corpuscular HGB Conc 31.4 g/dL (31.5-36.5); Mean Corpuscular Volume 89 fL (80-100); Mean Platelet Volume 9.7 fL (9.1-12.4); NEUTROPHILS ABSOLUTE AUTO 8.21 K/mm3 (1.96-9.15); NEUTROPHILS PERCENT AUTO 78 % (41-73); Platelet Count 270 K/mm3 (150-400); RDW Coefficient Variation 13.5 % (11.7-14.2); RDW Standard Deviation 44.4 fL (35.1-46.3); Red Blood Cell Count 4.89 M/mm3 (3.80-5.20); White Blood Cell Count 10.49 K/mm3 (4.00-11.30)
[2021-04-11 23:29] LABS: Source, Urine Straight Cath
[2021-04-11] MEDS ORDERED: TRAM50 PO (23:36)
[2021-04-11 23:37] LABS: Blood, Urine 5+ (Neg); Glucose Qualitative, Urine Neg (Neg); Ketones, Urine 3+ (Neg); Leukocyte Esterase, Urine 3+ (Neg); Nitrite, Urine Pos (Neg); Protein, Urine 3+ (Neg); Specific Gravity, Urine 1.025 (1.003-1.022); Urobilinogen, Urine 1+ (Normal)
[2021-04-11 23:37] LABS: Alanine Aminotransfer (ALT/SGP 21 U/L (12-78); Albumin, Blood 3.2 g/dL (3.4-5.0); Albumin/Globulin Ratio 0.7 (0.8-1.8); Alk Phos 170 U/L (50-136); Anion Gap 8 mmol/L (6-16); Aspartate Aminotrans (AST/SGOT 17 U/L (12-37); Bilirubin, Total 0.3 mg/dL (0.1-1.0); Blood Urea Nitrogen 13 mg/dL (8-24); Bun/Creatinine Ratio 19.1 (12.0-20.0); CO2, Blood 26 mmol/L (21-32); Calcium, Blood 8.5 mg/dL (8.5-10.1); Chloride, Blood 101 mmol/L (98-108); Creatinine, Blood 0.68 mg/dL (0.40-1.00); Globulin, Blood 4.4 g/dL (2.2-4.0); Glomerular Filtration Rate >60 (60-); Glucose, Blood 146 mg/dL (70-99); Potassium, Blood 3.5 mmol/L (3.5-5.5); Sodium, Blood 135 mmol/L (136-145); Total Protein, Blood 7.6 g/dL (6.4-8.2); Troponin I <0.015 ng/mL (0.000-0.040)
[2021-04-11 23:45] LABS: Appearance, Urine Cloudy (Clear); Bilirubin, Urine 2+ (Neg); Color, Urine Yellow (P-Yellow)
[2021-04-11 23:46] LABS: Amorphous Mod (0-Heavy); Bacteria Many /hpf; Squamous Epithelial Cells Many /hpf (Few); White Blood Cells, Urine TNTC /hpf (0-5)
[2021-04-12 00:08] LABS: Influenza A, PCR NEGATIVE (NEGATIVE); Influenza B, PCR NEGATIVE (NEGATIVE); Resp Syncytial Virus, PCR NEGATIVE (NEGATIVE); SARS-Cov-2 (COVID-19) PCR, MMC POSITIVE (NEGATIVE)
[2021-04-12 03:15] LABS: Base Excess Venous 1.8 mmol/L; PCO2 Venous 53.4 mmHg (38-42); PO2 Venous 28.5 mmHg (38-42); pH Blood Venous 7.33 (7.34-7.37)
[2021-04-12 03:50] LABS: Anion Gap 8 mmol/L (6-16); Blood Urea Nitrogen 15 mg/dL (8-24); Bun/Creatinine Ratio 20.9 (12.0-20.0); CO2, Blood 27 mmol/L (21-32); Calcium, Blood 7.8 mg/dL (8.5-10.1); Chloride, Blood 103 mmol/L (98-108); Creatinine, Blood 0.72 mg/dL (0.40-1.00); Glomerular Filtration Rate >60 (60-); Glucose, Blood 135 mg/dL (70-99); Potassium, Blood 4.3 mmol/L (3.5-5.5); Sodium, Blood 138 mmol/L (136-145)
[2021-04-12] MEDS ORDERED: SULTRIDS PO (05:01)
[2021-04-12] MEDS ORDERED: MYCOPHENOLATE500 MG PO (05:04)
[2021-04-12] MEDS ORDERED: Tegretol Xr400 MG PO (05:06)
[2021-04-12] MEDS ORDERED: ARTIFICIAL TEAR15 M2 BOTHEYES (05:11)
[2021-04-12 06:41] LABS: PCO2 Arterial 34.2 mmHg (35-45); PO2 Arterial 50.1 mmHg (80-100); pH Blood Arterial 7.41 (7.35-7.45)
[2021-04-12 06:51] LABS: BASOPHILS ABSOLUTE AUTO 0.03 K/mm3 (0.00-0.23); BASOPHILS PERCENT AUTO 0 % (0-2); EOSINOPHILS PERCENT AUTO 0 % (0-6); Hemoglobin 12.6 g/dL (11.5-16.0); IMMATURE GRAN ABSOLUTE AUTO 0.02 K/mm3 (0.00-0.10); IMMATURE GRAN PERCENT AUTO 0 % (0-1); LYMPHOCYTES ABSOLUTE AUTO 0.52 K/mm3 (0.84-5.20); LYMPHOCYTES PERCENT AUTO 5 % (21-46); MONOCYTES ABSOLUTE AUTO 0.61 K/mm3 (0.16-1.47); MONOCYTES PERCENT AUTO 6 % (4-13); Mean Corpuscular HGB 28.3 pg (26.0-34.0); Mean Corpuscular HGB Conc 30.7 g/dL (31.5-36.5); Mean Corpuscular Volume 92 fL (80-100); Mean Platelet Volume 10.9 fL (9.1-12.4); NEUTROPHILS ABSOLUTE AUTO 8.38 K/mm3 (1.96-9.15); NEUTROPHILS PERCENT AUTO 88 % (41-73); Platelet Count 223 K/mm3 (150-400); RDW Coefficient Variation 13.6 % (11.7-14.2); Red Blood Cell Count 4.45 M/mm3 (3.80-5.20); White Blood Cell Count 9.56 K/mm3 (4.00-11.30)
--- NOTE | 2021-04-12 07:31 | NUR ---
DENTAL TECHNICIAN APPRENTICE SUMMARY PATIENT WAS BROUGHT FROM THE ED. HER VITALS WERE CHECKED AND RECORDED. HER ASSESSMENT DONE. HER OXYGEN WAS BUMPED UP TO 10L AND HER SATURATION WAS 95%. SHE WAS MADE COMFORTABLE. THE PATIENT WAS PLACED ON TELE ALSO. THE AUTOMATIC PAD MAKING MACHINE OPERATOR CALLED THAT THE PT HR WAS UP IN THE 140S AND WAS SUSTAINING. HER V/S WERE CHECKED AND SHE WAS ASSESSED, HER OXYGEN LEVEL WAS 77 AT 10L. SHE WAS PLACED ON NON REBREATHER MASK. AND THR RESPIRATORY THERAPIST WAS CALLLED SHE WAS NOT SATURATING UPTO 90% ON NON REBREATHER. HE CAME IN AND SOME OTHER RN WERE THERE AND RAPID RESPONSE WAS CALLED SHE WAS MOTTLED AND HER TEMP IS 101.2, AND HER HR WAS 147. SHE WAS PLACED ON BIPAP AND SUPPOSITORY TYLENOL WAS ORDERED AND ADMINISTERED. SHE WAS TRANSFERRED TO ICU FOR CLOSER MONITORING.
--- NOTE | 2021-04-12 08:10 | NUR ---
ASSUMING PT CARE: PT ARRIVES TRANSFER FROM MEDICAL FLOOR S/P RN LABOR AND DELIVERY AFTER BEING FOUND HYPOXIC ON NC W/ HR IN THE 140S & FEBRILE @ 101. UPON ARRIVAL PT IS PLEASANTLY CONFUSED, BUT ABLE TO FOLLOW SIMPLE COMMANDS, SPEECH IS INAPPROPRIATE & SLURRED @ TIMES, HOWEVER PT HAS Hx OF COGNITIVE COMMUNICATION DISORDER PER [facility] CHART. LS COARSE T/O, RR RAPID & SHALLOW. CPAP 5/100%, SPO2 94%. TOLERATES SHORT BREAKS FOR SIPS OF WATER, RECOVERS WELL ONCE CPAP IS REPLACED. HRR, 130s. SBP 70s w/ MAPs 56-60s. BRICKNER UPDATED, ORDERS RECEIVED FOR 1L NS FLUID BOLUS, FEM CATH U-SPEC.
--- NOTE | 2021-04-12 08:45 | NUR ---
UPDATE: FAMILY/POA UPDATED CALL OUT TO PT's DAUGHTER, LEFT MESSAGE. PT'S SON-IN-LAW & POAMAGDALENE UPDATED ON TRANSFER & STATUS. HE IS NOT LOCAL & UNABLE TO VISIT @ THIS TIME, HOWEVER POA WILL CALL THE PT's SON WHO PLANS TO VISIT TODAY. SEE CHART FOR CONTACT INFO.
--- NOTE | 2021-04-12 11:02 | NUR ---
UPDATE: SPEECH/VS IMPROVEMENT. SPEECH EVAL WENT WELL, ORDERS PLACED. [facility] SOFT DIET, NO STRAWS, PILLS WHOLE w/ APPLESAUCE. VS IMPROVED AFTER FLUID BOLUS, HR 110, MAP 70s. UOP SCANT & CLOUDY/DARK. CORE TEMP 100.1. BRICKNER UPDATED & ORDERS GIVEN FOR ADDITIONAL FLUID BOLUS. CT PE STUDY RESULTS W/ NEG FINDINGS FOR PE.
[2021-04-12 11:52] LABS: Source, Urine Straight Cath
[2021-04-12 12:06] LABS: Appearance, Urine Clear (Clear); Bilirubin, Urine Neg (Neg); Blood, Urine 4+ (Neg); Color, Urine Yellow (P-Yellow); Glucose Qualitative, Urine Neg (Neg); Ketones, Urine 1+ (Neg); Leukocyte Esterase, Urine 2+ (Neg); Nitrite, Urine Neg (Neg); Protein, Urine 3+ (Neg); Specific Gravity, Urine 1.015 (1.003-1.022); Urobilinogen, Urine NORM (Normal)
[2021-04-12 12:20] LABS: Amorphous Mod (0-Heavy); Bacteria Many /hpf; Mucus Light (0-Heavy); Red Blood Cells, Urine 25-50 /hpf (0-2); Squamous Epithelial Cells Many /hpf (Few)
[2021-04-12 14:12] LABS: Anion Gap 7 mmol/L (6-16); Blood Urea Nitrogen 15 mg/dL (8-24); Bun/Creatinine Ratio 21.4 (12.0-20.0); CO2, Blood 24 mmol/L (21-32); Calcium, Blood 7.2 mg/dL (8.5-10.1); Chloride, Blood 111 mmol/L (98-108); Glomerular Filtration Rate >60 (60-); Glucose, Blood 127 mg/dL (70-99); Potassium, Blood 3.3 mmol/L (3.5-5.5); Sodium, Blood 142 mmol/L (136-145)
--- NOTE | 2021-04-12 14:45 | NUR ---
UPDATE: PERSISTENT HYPOTENSION. BP TRENDING DOWNWARDS AGAIN, w/ MAPs <65. UOP ONLY 25mls AFTER 2L NS BOLUS. STAT BMP RELAYED TO MALA, RENAL FUNCTION NOT CONCERNING. ORDERS RECEIVED FOR MAINTENANCE FLUIDS NS 100ml/hr & ADDITIONAL 1L NS BOLUS. ABX CHANGED TO UNASYN. PT PRODUCING MUCH MORE SECRETIONS, SHE IS ABLE TO COUGH UP SOME THICK/THIN SPUTUM BUT COUGH REMAINS VERY WEAK. RT CALLED TO BEDSIDE FOR NT SUCTION.
--- NOTE | 2021-04-12 15:44 | NUR ---
UPDATE: CHANGED TO BiPAP. PT ALARMING LOW MIN VENTILATION & WITH LOW TVs IN THE 100-200. SATS MAINTAINING @ 98%. RT @ BEDSIDE & PT CHANGED TO BiPAP /, /%. PT DOING WELL & QUICKLY RETURNS TO SLEEPING.
--- NOTE | 2021-04-12 17:00 | NUR ---
UPDATE: CÉSAR CONSULT MALA UPDATED ON CONTINUED POOR UOP, HYPOTENSION, & DECREASING LOC. PT ONLY ABLE TO BE AROUSED W/ STERNAL RUB & QUICKLY RETURNS TO SLEEPING. CÉSAR CONSULTED & TO ROOM FOR EVAL. PT GIVEN 1L LR BOLUS. GRANDE UNABLE TO BE FLUSHED & FOUND TO BE LEAKING. GRANDE CHANGED W/ IMMEDIATE 100ml RETURN. PLAN FOR PICC PLACEMENT TO CONSIDER PRESSORS. FAMILY @ BEDSIDE UPDATED & IS AGREEABLE TO THIS PLAN.
--- NOTE | 2021-04-12 18:45 | NUR ---
SHIFT SUMMARY: PT's BP CONTINUES TO IMPROVE NOW 117/61, MAP 81. SHE IS MUCH MORE AWAKE & IS ABLE TO MAKE SOME NEEDS KNOWN. BiPAP 14/6, 12/45%. SATS 98%. SHE CONTINUES TO COUGH UP THICK/THIN KANG SPUTUM & TOLERATES SHORT BREAKS FROM BiPAP. COUGH SEEMS TO BE STRONGER THAN PREVIOUS. MATTXIMENA SAW THE PT BEFORE HE LEFT THE UNIT & IS PLEASED W/ THE PT's PROGRESS. NO NEW ORDERS @ THIS TIME. SEE PREVIOUS DOCUMENTATION FOR PT PROGRESSION.
--- NOTE | 2021-04-12 19:15 | NUR ---
ASSUMPTION OF CARE PT CURRENTLY ON BIPAP. PT HAVING LARGE AMOUNTS OF SPUTUM, REMOVING MASK SEVERAL TIMES TO COUGH UP SPUTUM. PT SWITCHED TO HIGH FLOW NC AT 15LPM, PT TOLERATING WELL. PT RECEIVING LR. PT AWAKE, ANSWERS QUESTIONS APPROPRIATELY. PT C/O ALL OVER PAIN THAT IS CHRONIC. VSS AT THIS TIME. CORE TEMP 99.3. GRANDE IN PLACE DRAINING WILLIE URINE. SEE SHIFT ASSESSMENT.
--- NOTE | 2021-04-12 21:12 | NUR ---
UPDATE PT USING CALL LIGHT APPROX EVERY 15-MIN. PT HAS BEEN SWITCHED FROM BIPAP TO HIGH FLOW NC MULTIPLE TIMES. PT CONTINUES TO COUGH UP MODERATE/LARGE AMOUNTS OF SPUTUM. PT ADMITS TO FEELING ANXIOUS AND SCARED, THERAPEUTIC CONVERSATION PROVIDED AND PT REPORTS FEELING LESS ANXIOUS. PT ALSO C/O 10/10 "ALL OVER PAIN" SINCE BEGINNING OF SHIFT. MEDICATED PER EMAR WITH TYLENOL. WHEN ASKED IF THE MEDICATION HELPED PT STS "YES IT REALLY DID" AND WHEN ASKED HER PAIN LEVEL SHE STS "10". PT LYING IN BED WATCHING TV, MILD ANXIETY AND STS SHE IS COMFORTABLE.
[2021-04-13 04:18] LABS: Hematocrit 33.1 % (33.0-51.0); Hemoglobin 10.3 g/dL (11.5-16.0); Mean Corpuscular HGB 28.5 pg (26.0-34.0); Mean Corpuscular HGB Conc 31.1 g/dL (31.5-36.5); Mean Corpuscular Volume 91 fL (80-100); Mean Platelet Volume 10.4 fL (9.1-12.4); Platelet Count 162 K/mm3 (150-400); RDW Coefficient Variation 13.6 % (11.7-14.2); Red Blood Cell Count 3.62 M/mm3 (3.80-5.20); White Blood Cell Count 7.84 K/mm3 (4.00-11.30)
[2021-04-13 05:15] LABS: Alanine Aminotransfer (ALT/SGP 13 U/L (12-78); Albumin, Blood 2.1 g/dL (3.4-5.0); Alk Phos 86 U/L (50-136); Anion Gap 7 mmol/L (6-16); Aspartate Aminotrans (AST/SGOT 18 U/L (12-37); Bilirubin, Total 0.2 mg/dL (0.1-1.0); Blood Urea Nitrogen 16 mg/dL (8-24); Bun/Creatinine Ratio 28.9 (12.0-20.0); CO2, Blood 23 mmol/L (21-32); Calcium, Blood 7.5 mg/dL (8.5-10.1); Chloride, Blood 115 mmol/L (98-108); Creatinine, Blood 0.55 mg/dL (0.40-1.00); Glomerular Filtration Rate >60 (60-); Glucose, Blood 108 mg/dL (70-99); Magnesium, Blood 1.7 mg/dL (1.6-2.4); Potassium, Blood 3.7 mmol/L (3.5-5.5); Sodium, Blood 145 mmol/L (136-145)
[2021-04-13 05:26] LABS: Albumin/Globulin Ratio 0.8 (0.8-1.8); Globulin, Blood 2.6 g/dL (2.2-4.0)
[2021-04-13 05:50] LABS: Total Protein, Blood 4.7 g/dL (6.4-8.2)
[2021-04-13 06:07] LABS: BAND PERCENT MAN 19 % (0-8); BASOPHILS PERCENT MAN 0 % (0-2); EOSINOPHILS PERCENT MAN 0 % (0-6); LYMPHOCYTES ABSOLUTE MAN 0.39 K/mm3 (0.84-5.20); LYMPHOCYTES PERCENT MAN 5 % (21-46); MONOCYTES ABSOLUTE MAN 0.54 K/mm3 (0.16-1.47); MONOCYTES PERCENT MAN 7 % (4-13); NEUTROPHILS ABSOLUTE MAN 6.89 K/mm3 (1.96-9.15); SEG NEUTROPHILS PERCENT MAN 69 % (41-73); TOTAL CELLS COUNTED 100
--- NOTE | 2021-04-13 06:18 | NUR ---
SHIFT SUMMARY PT HAS BEEN ON 15L HIGH FLOW NC SINCE APPROX 1200 YESTERDAY. PT TOLERATING WELL AND MAINTAINING SPO2 >94%. PT CONTINUES TO HAVE PRODUCTIVE COUGH WITH MODERATE/LARGE AMOUNTS OF SPUTUM. PT IS ALERT TO SELF, FAMILY, AND FOLLOWING DIRECTIONS. PT OCCASIONALLY ANXIOUS BUT RESPONDS WELL TO THERAPEUTIC CONVERSATION. PT HAD 400ML URINE OUTPUT THIS SHIFT. PT CURRENTLY SLEEPING. TALKED TO MAGDALENE, SON, ON PHONE. PLAN FOR JAIME, DAUGHTER, TO VISIT TODAY. WILL REPORT TO ONCOMING RN.
--- NOTE | 2021-04-13 09:00 | NUR ---
ASSUMING PT CARE: PT RESTING IN BED w/ BLANKET OVER HER FACE. AWAKES TO TO HER NAME. FOLLOWS COMMANDS. STS SHE HAS "ALL OVER" BODY ACHES & THE BLANKET OVER HER FACE "HELPS". MEDS GIVEN w/ APPLE SAUCE & PT DID WELL. REFUSED BREAKFAST TRAY, STS SHE JUST WANTS TO SLEEP. HF NC TITRATED DOWN FROM 15 to 10L/MIN, SATS >95%. SBP STABLE. JOSEPH & CÉSAR ROUNDED THIS AM, UPDATED ON PT PROGRESSION. SHE CONTINUES PCU STATUS & MAY CHANGE TO MEDICAL STATUS LATER TODAY IF SHE CONTINUES TO IMPROVE.
--- NOTE | 2021-04-13 12:10 | NUR ---
UPDATE: FAMILY UPDATED PT's SON-IN-LAW, MAGDALENE, UPDATED ON PT'S POSITIVE PROGRESSION OVERNIGHT. PT's DAUGHTER IS FLYING IN AND SHOULD BE HERE THIS AFTERNOON. PT IS RESTING W/ EYES CLOSED, AWAKES EASILY W/ VERBAL STIM. HF NC DEC FROM 10L to 8L/min & PT TOLERATING WELL. MEDICATED W/ PO TYLENOL FOR BODY ACHES & INCREASING TEMP OF 99.9.
--- NOTE | 2021-04-13 18:12 | NUR ---
SHIFT SUMMARY: MENTATION APPEARS TO BE IMPROVING. PT RESPONDS APPROPRIATELY @ TIMES, ASKING TO GO TO THE BATHROOM, STS YES/NO, & IS ABLE TO SQUEEZE HANDS & OPEN EYES @ REQUEST. SHE CONTINUES TO BE VERY CONFUSED, OFTEN TRYING TO CRAWL OUT OF BED. GOSMAN UPDATED & PT WILL TRANSITION TO AIRVO SOON RT IS AVAILABLE. ORAL CARE CONTINUES TO BE DIFFICULT PT IS VERY RESTLESS & IS OFTEN COUGHING UP THICK KANG SPUTUM. +BM THIS SHIFT. 1050ml UOP. SEE PREVIOUS NOTATIONS FOR PT PROGRESSION.
--- NOTE | 2021-04-13 18:36 | NUR ---
SHIFT SUMMARY: PT IMPROVED T/O THE SHIFT. O2 TITRATED DOWN TO NC @ 6L/min, SPO2 97%. SHE CONTINUES TO HAVE A STRONG COUGH & PRODUCE THIN SPUTUM THAT IS NOW CLEAR. BP STABLE. PT SLEPT FOR THE MAJORITY OF THE SHIFT BUT WAS AWAKE & ALERT FOR VISIT FROM HER DAUGHTER. 450ml UOP. POOR PO INTAKE TODAY D/T NAUSEA, IMPROVED AFTER ZOFRAN. PLAN TO EVALUATE FOR STATUS CHANGE TO MEDICAL. WILL CONTINUE TO MONITOR UNTIL REPORT OFF TO ONCOMING RN.
--- NOTE | 2021-04-13 19:20 | NUR ---
ASSUMPTION OF CARE PT SLEEPING AND EASILY AROUSABLE. PT RECEIVING NS 100ML/HR. O2 SATS >97% ON 6L VIA NC, TITRATED DOWN TO 4L WITH SPO2 >95%. PT C/O "ALL OVER" BODY PAIN, REPOSITIONED FOR COMFORT. PT ALSO STS SHE "FEELS VERY TIRED". PT PARTICIPATES IN CONVERSATION, FOLLOWS COMMANDS. MEDS GIVEN WITH APPLESAUCE, PT TOLERATED WELL WITHOUT DIFFICULTY. GRANDE REMAINS IN PLACE DRAINING YELLOW/CLOUDY URINE. TEMP 98.8. VSS AT THIS TIME. PT DENIES ADDITIONAL NEEDS AND REQUESTS TO "JUST SLEEP FOR A BIT". SEE SHIFT ASSESSMENT.
--- NOTE | 2021-04-14 06:43 | NUR ---
SHIFT SUMMARY RECEIVING NS 100ML/HR. PT REQUESTED UNINTERRUPTED REST AND SLEPT THROUGH MOST OF NIGHT. PT AROUSABLE WITH VERBAL STIMULI DURING Q2 REPOSITIONING. PT ALERT AND ORIENTED, PARTICIPATES IN CONVERSATION. THIS AM PT EXPRESSES FEAR AND ANXIETY REGARDING ILLNESS. PT PROVIDED THERAPEUTIC COMMUNICATION AND STS SHE "FEELS BETTER NOW AND KNOWS IT WILL TAKE AWHILE TO GET BACK TO NORMAL". GRANDE REMAINS IN PLACE WITH SHIFT OUTPUT OF 400ML. VSS. PT CURRENTLY SLEEPING. WILL REPORT TO ONCOMING RN.
--- NOTE | 2021-04-14 08:25 | NUR ---
ASSUMED CARE / DR RUIZ: REPORT RECEIVED FROM EBEN Ac RN. ASSUMED CARE OF THIS PT AT APPROX 0700. ON ASSESSMENT, THE PT IS RESTING QUIETLY & AWAKENS EASILY TO VERBAL STIMULUS. SHE IS USING HER CALL LIGHT APPROPRIATELY & ABLE TO MAKE NEEDS KNOWN, ALTHOUGH THERE IS SOME DIFFICULT COMMUNICATION AT BASELINE W/ PT HAVING DIFFICULTY FINDING THE RIGHT WORDS WHEN CONVERSING. SHE IS ALSO FORGETFUL & REQUIRES SOME REORIENTATION R/T HX DEMENTIA. LS ARE COARSE IN UPPERS, DIM IN LOWERS, PT HAVING A PRODUCTIVE, MOIST COUGH W/ SMALL AMNT OF KANG/ WHITE SPUTUM NOTED. MONITOR SHOWS SR W/ HR 80-100s, BP STABLE. PT HAS NO GI COMPLAINTS, DOES HAVE POOR APPETITE BUT TOLERATES MINIMAL PO INTAKE WELL. TEMP GRANDE PATENT/ DRAINING CLOUDY YELLOW URINE. SKIN CONDITION OVERALL INTACT, FRAGILE. DR RUIZ AT BEDSIDE THIS AM TO EVAL PT. AFTER SPEAKING W/ THE PT & EVALUATING HER, HE FEELS THAT SHE IS APPROPRIATE FOR MEDICAL STATUS W/ NO TELE. HE WOULD ALSO LIKE PHYSICAL & OCCUPATIONAL THERAPIES ORDERED FOR THIS PT. WILL CONTINUE TO MONITOR & UPDATE NEEDED.
--- NOTE | 2021-04-14 11:58 | NUR ---
CALLED FOR A REPORT; BUT RN WILL CALL BACK
--- NOTE | 2021-04-14 12:35 | NUR ---
TRANSFER TO MEDICAL FLOOR: REPORT HAS BEEN GIVEN TO LELA Sheets RN TO ASSUME CARE. THE PT HAS BEEN TX FROM ICU-12 TO 363 AT APPROX 1230. ALL BELONGINGS & CHART HAVE BEEN TAKEN W/ THE PT AT THIS TIME. PT IS TRANSFERRED VIA BED BY MARIO BOYER.
--- NOTE | 2021-04-14 14:30 | NUR ---
PT CAME IN WITH COVID 19, WITH SOB AND PRODUCTIVE COUGH SYMPTOMS. PT PMH ARE MS, DIMENTIA, SEIZURE, AND COMMUNICATION DIFFICULTIES. PT IS WORKING WITH ST, PT, AND OT. DYSPHAGIA PRECAUTIONS. PT IS ON 4L NC, AND COURSE LUNGS THROUGHOUT. PT HAS VERY THICK PRODUCTIVE COUGH. PT IS NOT ON TELE. TAKES MEDS WHOLE WITH APPLESAUCE AND POOR APPETITE PER OUTREACH REPRESENTATIVE. NEEDS SUPERVISION WHEN EATING. PT HAS GRANDE FROM ICU. PT HAVE BLE CONTRACTURES. BED IS IN THE LOWEST POSITION AND CALL LIGHT WITHIN REACH.
--- NOTE | 2021-04-14 17:20 | NUR ---
SHIFT SUMMARY PT AOX2; CONFUSED AT TIMES. DC'D GRANDE, WEARING DEPENDS/. 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 PT IS A LIFT TRANSFER PER PHYSICAL THERAPIST. PT IS ON 4L OF 02; SATS WNL. DYSPHAGIA PRECAUTIONS; NO STRAWS. BED IS IN THE LOWEST POSITION AND CALL LIGHT WITHIN REACH
--- NOTE | 2021-04-15 07:19 | NUR ---
70 YEAR OLD fEMALE WITH MS ON IMMUNOSPRESSANT RX HAS COVID 19. ALERT WITH MILD CONFUSION. OXYGEN WEANED FOR 4 L NC TO 2 L NC. . MEDICated with tyl 650 mg several times with helpful effect.Incont of large amts of urine. Cont on IVF, remdesivere IV. Total assist of 2 for bed mobily & toileting.
--- NOTE | 2021-04-15 17:07 | NUR ---
SHIFT SUMMARY PT AxOx2-3 WITH INTERM CONFUSION. PT PLEASANT AND COOPERATIVE WITH CARE. PT ON BEDREST, MOVED TO LIFT ROOM TODAY. PT ON NS 100ML/HR, AND GIVEN REMDESIVIR #3 TODAY. PT BREATHING WITHOUT DIFFICULTY ON O2 VIA NC DECREASED FROM 4LPM TO 2LMP WITH CONT BIOX SAT >95%. PATIENT FAMILY IN ROOM TODAY, GIVEN UPDATE. PT IS CURRENTLY WAITING ON SNF PLACEMENT. DENIES PAIN. PT HAD POOR APPETITE THIS SHIFT. WORKED WITH PT/OT AND REPORTED FEELING WEAK AND EXHAUSTED. PT IS CURRENTLY NAPPING IN HER BED WITH CALL LIGHT IN REACH. VITALS REVIEWED.
--- NOTE | 2021-04-16 03:58 | NUR ---
ZOOLOGY TEACHER SUMMARY PATIENT HAD A FAIR SHIFT. THIS RN TRIED TO WEAN HER OFF OXYGEN AT THE BEGINNING OF THE SHIFT, SHE DESATURATED TO 86-88%, PLACED HER BACK ON OXYGEN AT 2L VIA NC. OTHERWISE STABLE VITAL SIGNS. WILL CONTINUE TO MONITOR HER.
[2021-04-16 07:16] LABS: Hematocrit 31.9 % (33.0-51.0); Hemoglobin 10.2 g/dL (11.5-16.0); Mean Corpuscular HGB 28.2 pg (26.0-34.0); Mean Corpuscular Volume 88 fL (80-100); Mean Platelet Volume 9.7 fL (9.1-12.4); Platelet Count 212 K/mm3 (150-400); RDW Coefficient Variation 13.5 % (11.7-14.2); RDW Standard Deviation 43.4 fL (35.1-46.3); Red Blood Cell Count 3.62 M/mm3 (3.80-5.20); White Blood Cell Count 7.88 K/mm3 (4.00-11.30)
[2021-04-16 08:04] LABS: Anion Gap 6 mmol/L (6-16); Blood Urea Nitrogen 8 mg/dL (8-24); Bun/Creatinine Ratio 17.1 (12.0-20.0); CO2, Blood 31 mmol/L (21-32); Calcium, Blood 7.3 mg/dL (8.5-10.1); Chloride, Blood 103 mmol/L (98-108); Creatinine, Blood 0.47 mg/dL (0.40-1.00); Glomerular Filtration Rate >60 (60-); Glucose, Blood 109 mg/dL (70-99); Potassium, Blood 3.1 mmol/L (3.5-5.5); Sodium, Blood 140 mmol/L (136-145)
--- NOTE | 2021-04-16 17:56 | NUR ---
SHIFT SUMMARY PT IS RESTING IN BED. SHE HAS BEEN NAUSEOUS THIS MORNING AND OME THIS AFTERNOON AND REFUSED ALL MEALS BUT DINNER. SHE IS NOW SATTING 95% ON 3L. SHE HAS BEEN SLEEPING MOST OF THE DAY BUT WORKED BRIEFLY WITH PT. DAUGHTER UPDATED. PT STILL WAITING FOR A ROOM AT [facility]. WILL CONTINUE TTO MONITOR.
--- NOTE | 2021-04-17 03:20 | NUR ---
SCREENER OPERATOR SUMMARY PATIENT HAD A FAIR SHIFT. HER VITALS WERE STABLE ALL NIGHT. SHE IS STILL ON 3L OF OXYGEN. NO EVENTS OVERNIGHT. WILL CONTINUE TO MONITOR HER.
--- NOTE | 2021-04-17 04:18 | NUR ---
PATIENT STATED SHE WAS NAUSEOUS AND IS HAVIBG A HEADACHE. SHE WAS GIVEN ZOFRAN AND TYLENOL. TO HELP WITH THAT. SEE EMAR. NO OTHER COMPLAINTS AT THIS TIME. WILL CONTINUE TO MONITOR HER.
[2021-04-17 05:53] LABS: BASOPHILS ABSOLUTE AUTO 0.02 K/mm3 (0.00-0.23); BASOPHILS PERCENT AUTO 0 % (0-2); EOSINOPHILS ABSOLUTE AUTO 0.15 K/mm3 (0.00-0.68); EOSINOPHILS PERCENT AUTO 2 % (0-6); Hematocrit 30.6 % (33.0-51.0); IMMATURE GRAN ABSOLUTE AUTO 0.14 K/mm3 (0.00-0.10); IMMATURE GRAN PERCENT AUTO 2 % (0-1); LYMPHOCYTES ABSOLUTE AUTO 1.01 K/mm3 (0.84-5.20); LYMPHOCYTES PERCENT AUTO 15 % (21-46); MONOCYTES PERCENT AUTO 13 % (4-13); Mean Corpuscular HGB 28.6 pg (26.0-34.0); Mean Corpuscular HGB Conc 32.7 g/dL (31.5-36.5); Mean Corpuscular Volume 87 fL (80-100); NEUTROPHILS ABSOLUTE AUTO 4.71 K/mm3 (1.96-9.15); NEUTROPHILS PERCENT AUTO 68 % (41-73); Platelet Count 237 K/mm3 (150-400); RDW Coefficient Variation 13.6 % (11.7-14.2); RDW Standard Deviation 43.4 fL (35.1-46.3); White Blood Cell Count 6.93 K/mm3 (4.00-11.30)
[2021-04-17 07:16] LABS: Anion Gap 7 mmol/L (6-16); Blood Urea Nitrogen 8 mg/dL (8-24); CO2, Blood 29 mmol/L (21-32); Calcium, Blood 7.5 mg/dL (8.5-10.1); Chloride, Blood 104 mmol/L (98-108); Creatinine, Blood 0.44 mg/dL (0.40-1.00); Glomerular Filtration Rate >60 (60-); Glucose, Blood 97 mg/dL (70-99); Potassium, Blood 3.6 mmol/L (3.5-5.5); Sodium, Blood 140 mmol/L (136-145)
--- NOTE | 2021-04-17 07:59 | NUR ---
Pt awakens when I enter the room. Coarse audible breathing while lying on her back. STates that she feels very tired and sick. States achy pain "all over". No anxiety, no use of accessory muscles, respirations are even and unlabored, 12-14 /minute, and pt is on 2 l/min oxygen. NO continuous oximetry is in use upon my initial assessment.
--- NOTE | 2021-04-17 11:26 | NUR ---
Attempted to prone pt with assistance, but she did not tolerate it; she became nauseated and was also cyanotic, so she was repositioned back to her right side and the symptoms resolved right away, and she stated that she was very comfortable after pillows were repositioned around her for support.
--- NOTE | 2021-04-17 12:11 | NUR ---
C/O urinary incontinence as well as nausea. ATtends was changed and zofran given for relief.
--- NOTE | 2021-04-17 12:52 | NUR ---
Supervised and assisted minimally with her lunch tray. She is able to feed herself with some help opening some items. She states that her nausea has improved.
--- NOTE | 2021-04-17 15:09 | NUR ---
Pt states that her nausea is better. She appears to be resting comfortably. She was instructed on the use of the flutter valve, and she said that she is getting up some of the sputum.
--- NOTE | 2021-04-18 04:18 | NUR ---
BARBERING TEACHER SUMMARY PATIENT HAD A FAIR SHIFT. HER V/S WERE CHECKED AND RECORDED. SHE DID DELT NAUSEOUS AND HEADACHE, SHE WAS MEDICATED NEEDED. SHE HAD A LITTLE SNACK AND TOLERATED IT WELL. NO OTHER COMPLAINT LODGED WILL CONTINUE TO MONITOR HER.
--- NOTE | 2021-04-18 17:00 | NUR ---
SHIFT SUMMARY PATIENT IS ALERT AND ORIENTED 2-3. PATIENT HAS BEEN PLEASENT AND COOPERATIVE WITH CARE. PATIENT IS COVID POSITIVE AND HAS BEEN ON 2 LITERS ALL SHIFT SATTING ABOVE 90 PERCENT. PATIENT HAS BEEN NAUSEOUS AND HAS HAD A HEADACHE THIS SHIFT. PATIENT HAS HAD A SPEECH EVALUATION DONE THIS SHIFT AND WAS MADE NPO UNTIL REEVALUATED FOR COUGH. IV PAIN MEDICATIONS ORDERED FROM , WAS GIVEN ONCE. NO ACUTE EVENTS THIS SHIFT. VITAL SIGNS REVIEWED. CALL LIGHT IN PLACE. WILL MONITOR UNTIL SHIFT CHANGE.
--- NOTE | 2021-04-19 04:46 | NUR ---
METAL FURNITURE PANEL COVERER SUMMARY PATIENT HAD A FAIR SHIFT. SHE MAINTAINED NPO. SHE STILL NAUSEOUS AND WAS GIVEN ZOFRAN NEEDED. SHE ALSO HAD PAIN MED PER ORDER. SHE IS ON 3L OF OXYGEN NC. HER V/S WERE CHECKED AND THEY ARE STABLE. WILL CONTINUE TO MONITOR.
--- NOTE | 2021-04-19 16:35 | NUR ---
SHIFT SUMMARY PATIENT HAS BEEN ALERT AND ORIENTED 2-3X. PATIENT HAS BEEN ON 3 LITERS OXYGEN ALL SHIFT SATTING ABOVE 92 PERCENT. PATIENT HAS BEEN CONSISTANTLY NAUSOUS. PATIENT HAS BEEN MEDICATED WITH ZOFRAN WITH LIMITED EFFECT. REMAINS NAUSOUS. PATIENT WAS EVALUATED BY SPEECH THERAPY AND WAS CHANGED TO PUREED DIET AND SUPERVISED MEALS. PATIENT HAS HAD NO ACUTE EVENTS THIS SHIFT. VITAL SIGNS REVIEWED. BED IN LOWEST POSITION. WILL MONITOR UNTIL SHIFT CHANGE.
--- NOTE | 2021-04-20 04:26 | NUR ---
Pt is alert and oriented to self only. she is bed bound, but is able to assist with turns. she is forgetful. she was pleasant upon start of shift and after an hour became agitated. PICC in place. no signs of distress or shortness of breath. pt laying on bed in lowest position. call light within reach.
--- NOTE | 2021-04-20 17:45 | NUR ---
SHIFT SUMMARY PATIENT IS ALERT AND ORIENTED TO SELF ONLY. PATIENT IS COVID POSITIVE. PATIENT IS ON 4 LITERS OF OXYGEN AND SATTING ABOVE 92 PERCENT. PATIENT HAS BECOME MORE HOSTILE TOWARDS THE END OF SHIFT. PATIENT IS INCONTINENT. PATIENT HAS HAD NO COMPLAINTS OF PAIN OR SOB THIS SHIFT. PATIENT STATES THAT SHE IS CONSISTANTLY NAUSEATED AND HAS VOMITTED THIS SHIFT BUT I HAVE NOT WITNESSED THAT. DR SAID SHE IS GOING TO TALK TO FAMILY ABOUT TRANSITIONING PATIENT TO COMFORT CARE. NO WORD ON THAT YET. NO ACUTE ISSUES THIS SHIFT. VITAL SIGNS REVIEWED. WILL MONITOR UNTIL SHIFT CHANGE.
--- NOTE | 2021-04-21 02:28 | NUR ---
PT IS ALERT AND ORIENTED TO SELF ONLY. PT HAS A RIGHT UPPER ARM PICC TRIPLE LUMEN. PT IS ABLE TO TURN WITH ASSIST. SHE FOLLOWS COMMANDS. HER APPETITE IS POOR. ATTEMPTED TO FEED HER WITH SOME APPLE SAUCE AND PATIENT ATE 80% OF IT. COMPLAINS OF PAIN ON HER BILATERAL LOWER EXTREMITIES, ADMINISTERED PAIN MEDICATION AND PATIENT STATED EFFECTIVENESS. PT IS INCONTINENT IN BOWEL AND URINE. BED IN LOWESET POSITION. CALL LIGHT WITHIN REACH.
[2021-04-21 05:57] LABS: BASOPHILS ABSOLUTE AUTO 0.02 K/mm3 (0.00-0.23); BASOPHILS PERCENT AUTO 0 % (0-2); EOSINOPHILS ABSOLUTE AUTO 0.06 K/mm3 (0.00-0.68); EOSINOPHILS PERCENT AUTO 1 % (0-6); Hemoglobin 9.9 g/dL (11.5-16.0); IMMATURE GRAN ABSOLUTE AUTO 0.09 K/mm3 (0.00-0.10); IMMATURE GRAN PERCENT AUTO 1 % (0-1); LYMPHOCYTES ABSOLUTE AUTO 1.55 K/mm3 (0.84-5.20); LYMPHOCYTES PERCENT AUTO 19 % (21-46); MONOCYTES ABSOLUTE AUTO 0.64 K/mm3 (0.16-1.47); MONOCYTES PERCENT AUTO 8 % (4-13); Mean Corpuscular HGB Conc 31.9 g/dL (31.5-36.5); Mean Corpuscular Volume 88 fL (80-100); Mean Platelet Volume 9.8 fL (9.1-12.4); NEUTROPHILS ABSOLUTE AUTO 5.98 K/mm3 (1.96-9.15); NEUTROPHILS PERCENT AUTO 72 % (41-73); Platelet Count 286 K/mm3 (150-400); RDW Coefficient Variation 14.1 % (11.7-14.2); RDW Standard Deviation 44.5 fL (35.1-46.3); Red Blood Cell Count 3.53 M/mm3 (3.80-5.20); White Blood Cell Count 8.34 K/mm3 (4.00-11.30)
[2021-04-21 06:13] LABS: Anion Gap 5 mmol/L (6-16); Blood Urea Nitrogen 12 mg/dL (8-24); Bun/Creatinine Ratio 21.8 (12.0-20.0); CO2, Blood 33 mmol/L (21-32); Calcium, Blood 7.3 mg/dL (8.5-10.1); Chloride, Blood 106 mmol/L (98-108); Creatinine, Blood 0.55 mg/dL (0.40-1.00); Glomerular Filtration Rate >60 (60-); Glucose, Blood 106 mg/dL (70-99); Potassium, Blood 3.8 mmol/L (3.5-5.5); Sodium, Blood 144 mmol/L (136-145)
[2021-04-21] MEDS ORDERED: DEXA6 PO (11:41)
[2021-04-21] MEDS ORDERED: FAMO20 PO (11:42)
[2021-04-21] MEDS ORDERED: ELIQUIS5 M2 PO (11:42)
[2021-04-21] MEDS ORDERED: PANT20 PO (11:43)
[2021-04-21] MEDS ORDERED: ONDA4ODT MM (11:43)
[2021-04-21] MEDS ORDERED: VISBIOME 112.51 EACH PO (11:44)
[2021-04-21] MEDS ORDERED: FERSU300 PO (13:51)
[2021-04-21] MEDS ORDERED: ASCO500 PO (13:51)
--- NOTE | 2021-04-21 16:40 | NUR ---
DISCHARGE PATIENT TRANSPORTED VIA GURNEY BY [facility] TO [facility]. BELONGINGS SENT WITH PATIENT. PACKET SENT TO [facility]. PICC LINE REMOVED BY CHARGE NURSE. PATIENT SENT ON 2L VIA N/C. PACKET GIVEN TO EDUCATION SITE MANAGER. REPORT CALLED TO NATHALY AT [facility].
== END 2021-04-21 16:40 | DRG 871 ==
LOC: ER 22:25 → ICUW 04-12 02:32 → MEDS 04-12 02:32 → ICUW 04-12 06:42 → MEDS 04-14 12:45 → ENPENDDIS 04-21 11:17 → MEDS 04-21 16:40
PROVIDERS: Hospitalist; Internal Medicine; Internal Medicine Critical Care Medicine; Student in an Organized Health Care Education/Training Program; ADMIT Family Medicine
PROC: 8E0ZXY6 Isolation (ICD-10-PCS; principal; 2021-04-12)
PROC: XW033E5 Introduction of Remdesivir Anti-infective into Peripheral Vein, Percutaneous Approach, New Technology Group 5 (ICD-10-PCS; 2021-04-12)
PROC: 3E0333Z Introduction of Anti-inflammatory into Peripheral Vein, Percutaneous Approach (ICD-10-PCS; 2021-04-12)
PROC: 5A09357 Assistance with Respiratory Ventilation, Less than 24 Consecutive Hours, Continuous Positive Airway Pressure (ICD-10-PCS; 2021-04-12)
PROC: 5A0955A Assistance with Respiratory Ventilation, Greater than 96 Consecutive Hours, High Flow/Velocity Cannula (ICD-10-PCS; 2021-04-12)
PROC: 02H633Z Insertion of Infusion Device into Right Atrium, Percutaneous Approach (ICD-10-PCS; 2021-04-12)
DX: A41.89 Other specified sepsis (principal); U07.1 COVID-19; J12.82 Pneumonia due to coronavirus disease 2019; J96.01 Acute respiratory failure with hypoxia; J15.9 Unspecified bacterial pneumonia; G93.1 Anoxic brain damage, not elsewhere classified; Z66 Do not resuscitate; N39.0 Urinary tract infection, site not specified; E87.1 Hypo-osmolality and hyponatremia; E87.2 Acidosis; R65.20 Severe sepsis without septic shock; I95.9 Hypotension, unspecified; I10 Essential (primary) hypertension; G30.9 Alzheimer's disease, unspecified; Z68.29 Body mass index [BMI] 29.0-29.9, adult; F02.80 Dementia in other diseases classified elsewhere, unspecified severity, without behavioral disturbance, psychotic disturbance, mood disturbance, and anxiety; D63.8 Anemia in other chronic diseases classified elsewhere; G35 Multiple sclerosis; G40.909 Epilepsy, unspecified, not intractable, without status epilepticus; F41.9 Anxiety disorder, unspecified; F32.A Depression, unspecified; E03.9 Hypothyroidism, unspecified; Z79.899 Other long term (current) drug therapy; Z79.82 Long term (current) use of aspirin; Z79.52 Long term (current) use of systemic steroids; Z86.73 Personal history of transient ischemic attack (TIA), and cerebral infarction without residual deficits; Z90.49 Acquired absence of other specified parts of digestive tract; Z87.891 Personal history of nicotine dependence; Z28.21 Immunization not carried out because of patient refusal
CPT/HCPCS: 0241U; 36415; 36569; 36600; 51701; 51703; 71045; 71046; 71260; 80048; 80053; 80400; 81001; 82330; 82533; 82803; 83605; 83735; 84100; 84145; 84484; 85025; 85027; 85379; 87040; 87070; 87077; 87086; 87186; 87205; 87449; 92526; 92610; 93005; 93010; 94660; 94760; 94761; 94762; 96365; 96375; 97110; 97162; 97166; 97530; 99285-25; A9270; C1751; C9113; J0248; J0295; J0696; J0834; J1100; J1650; J1885; J1956; J2405; J3010; J7030; J7040; J7050; J7120; J7517; Q9967

== ENCOUNTER → 2021-05-16 | Outpatient (CLI) | payer OTHER ==
[~2021-05-16] MED LIST changes: +ARTIFICIAL TEAR15 M2 BOTHEYES; +ASCO500 PO; +DEXA6 PO; +ELIQUIS5 M2 PO; +FAMO20 PO; +FERSU300 PO; +MYCOPHENOLATE500 MG PO; +PANT20 PO; +SULTRIDS PO; +TRAM50 PO; +VISBIOME 112.51 EACH PO
[2021-05-16 15:46] LABS: Hematocrit 36.8 % (33.0-51.0); Hemoglobin 11.6 g/dL (11.5-16.0); Mean Corpuscular HGB 28.8 pg (26.0-34.0); Mean Corpuscular HGB Conc 31.5 g/dL (31.5-36.5); Mean Corpuscular Volume 91 fL (80-100); Mean Platelet Volume 10.1 fL (9.1-12.4); Platelet Count 264 K/mm3 (150-400); RDW Coefficient Variation 14.5 % (11.7-14.2); RDW Standard Deviation 48.4 fL (35.1-46.3); Red Blood Cell Count 4.03 M/mm3 (3.80-5.20); White Blood Cell Count 5.48 K/mm3 (4.00-11.30)
[2021-05-16 16:01] LABS: Alanine Aminotransfer (ALT/SGP 17 U/L (12-78); Albumin, Blood 2.7 g/dL (3.4-5.0); Albumin/Globulin Ratio 0.9 (0.8-1.8); Alk Phos 149 U/L (50-136); Anion Gap 6 mmol/L (6-16); Aspartate Aminotrans (AST/SGOT 15 U/L (12-37); Bilirubin, Total 0.3 mg/dL (0.1-1.0); Blood Urea Nitrogen 16 mg/dL (8-24); Bun/Creatinine Ratio 25.3 (12.0-20.0); CO2, Blood 25 mmol/L (21-32); Calcium, Blood 8.1 mg/dL (8.5-10.1); Chloride, Blood 109 mmol/L (98-108); Creatinine, Blood 0.63 mg/dL (0.40-1.00); Globulin, Blood 3.1 g/dL (2.2-4.0); Glomerular Filtration Rate >60 (60-); Glucose, Blood 117 mg/dL (70-99); Potassium, Blood 4.4 mmol/L (3.5-5.5); Sodium, Blood 140 mmol/L (136-145); Total Protein, Blood 5.8 g/dL (6.4-8.2)
[2021-05-16 16:38] LABS: BAND PERCENT MAN 1 % (0-8); BASOPHILS PERCENT MAN 0 % (0-2); EOSINOPHILS ABSOLUTE MAN 0.27 K/mm3 (0.00-0.68); EOSINOPHILS PERCENT MAN 5 % (0-6); LYMPHOCYTES % ATYPICAL MANUAL 1 % (0-0); LYMPHOCYTES ABSOLUTE MAN 2.02 K/mm3 (0.84-5.20); LYMPHOCYTES PERCENT MAN 36 % (21-46); MONOCYTES PERCENT MAN 2 % (4-13); NEUTROPHILS ABSOLUTE MAN 3.06 K/mm3 (1.96-9.15); SEG NEUTROPHILS PERCENT MAN 55 % (41-73); TOTAL CELLS COUNTED 100
== END ==
LOC: LAB SHORT 14:50
PROVIDERS: Dermatology
DX: L12.0 Bullous pemphigoid (principal); Z79.899 Other long term (current) drug therapy; Z79.82 Long term (current) use of aspirin
CPT/HCPCS: 80053; 85007; 85027